=== PATIENT | male | born 1960 | race Caucasian/White ===

== ENCOUNTER → 2016-09-08 | Outpatient (CLI) | payer OTHER ==
[~2016-09-08] MED LIST: /ADVA50050; /ADVA50050 INH; /AUGM875TA; /FENO48TA PO; /FENT25PA TD; /MOXI40TA OR; /OXAZ10CA; /OXAZ10CA PO; /PANT40TA OR; /PANT40TA PO; /THIA10TA OR; /TIOT18INH INH; ADVAIR HFA INH; ADVAIR HFA PO; ADVAIR200 INHALATION; ADVAIR500; ADVAIR500 INHALATION; ALBU17IN INH; ALBU83IN IN; ALBU83IN NEB; ALBUTEROL; ALBUTEROL INHALATION; ALBUTEROL INHALER INH; ALBUTEROL SULFATE INH; ALCOHOL TOP; ASPI325T; ASPI325T OR; ASPI325T PO; ASPI81TA7 PO; ASPI81TA83 PO; ATARAX50 PO; ATIV1TAB2; ATOR1TAB18 PO; BACL10TA2 PO; BENADRYL; COLA100C2 PO; COUMADIN PO; DARV100T OR; DARVOCET-N PO; DARVON-N1 PO; DIGO0.257 PO; ECOTRIN PO; ELIMITE TOPICAL; FENO48TA2 PO; FLEXERIL10 PO; GABA800T PO; HYDR-4274 PO; HYDR50TA8; HYDR50TA8 OR; HYDR50TA8 PO; HYDROXYZINE PO; IBUP600T26 PO; LABE10TAB PO; LEVITRA PO; LEXAPRO20 PO; LISI10TA4 PO; LOPR50TA; LOPR50TA PO; LOPRESSOR OR; LOPRESSOR PO; LORA0.5T OR; LOSA100T36 PO; LOVENOX SQ; LYRI200C PO; METO12TA PO; METROPROLOL PO; MILKSUS OR; MILKSUS PO; MOTRIN800 PO; NEEDLESFIN SQ; NEUR100C OR; NEUR100C PO; NEUR300C OR; NEUR600T OR; NEURONTIN PO; NICO21DI4; NICO21DI4 TD; NICO2GUM62 PO; NICOTINE GUM PO; NICOTINE OR; NITR0.4S; NITR0.4S SL; NITR4TASL SL; NITROSTAT4; NITROSTAT4 SL; OXAZ15CA2 OR; PAIN325T OR; PANT40TA2 PO; PAXI20TA; PAXI20TA OR; PAXI20TA PO; PERC5TAB8 PO; PERCOCET PO; PRED20TA OR; PROTONIX40 PO; PROV90AE; SIMV20TA2; SIMV20TA2 OR; SING10TA31; SING10TA31 OR; SPIRIVA HANDIHALER INH; THERGRAN; TRAM50TA2 OR; TRAZ100T4 PO; TRIC145T19 OR; VITA100T OR; ZANTAC150 PO; ZOCO40TA OR; [UNRECOGNIZED DRUG - CODE] PO; [UNRECOGNIZED DRUG - CODE] PO; [UNRECOGNIZED DRUG - OTHER] PO; [UNRECOGNIZED DRUG - REMARK] PO; [UNRECOGNIZED DRUG - SUPPLY] SC; nicorette
--- NOTE | 2016-09-08 11:43 | REP ---
Reason: Chronic obstructive pulmonary disease (COPD). Comparison: Multiple latest 04/16/2016. Lung sandoval are somewhat hyperexpanded. Chronic basilar changes are seen on the left status quo. The cardiomediastinal silhouette is unchanged. The heart is not enlarged. No acute patchy parenchymal opacities or pleural effusions have developed. The osseous structures are within normal limits. IMPRESSION: Chronic changes as described above without evidence of acute cardiopulmonary disease. Signed by El Scherer DO 09/08/2016 11:51 A
== END ==
LOC: M RAD 10:38
PROVIDERS: ATTEND Internal Medicine Pulmonary Disease
DX: J44.9 Chronic obstructive pulmonary disease, unspecified (principal)

== ENCOUNTER → 2016-09-15 | Outpatient (CLI) | payer OTHER ==
[2016-09-15 13:29] LABS: ALBUMIN 3.8 GM/DL (3.2-5.2); BILIRUBIN,TOTAL 0.4 MG/DL (0.2-1.0); CALCIUM LEVEL 8.8 MG/DL (8.5-10.1); CREATININE FOR GFR 1.48 MG/DL (0.70-1.30); POTASSIUM SERUM 4.4 MEQ/L (3.5-5.1); TOTAL PROTEIN 7.6 GM/DL (6.4-8.2)
== END ==
LOC: M LAB 12:11
PROVIDERS: ATTEND Family Medicine
DX: I10 Essential (primary) hypertension (principal); Z13.1 Encounter for screening for diabetes mellitus; Z13.220 Encounter for screening for lipoid disorders

== ENCOUNTER → 2016-09-28 | Outpatient (CLI) | payer OTHER ==
[2016-09-28 11:57] LABS: CALCIUM LEVEL 8.6 MG/DL (8.5-10.1); CREATININE FOR GFR 1.38 MG/DL (0.70-1.30); GLOMERULAR FILTRATION RATE 56.3 (>56)
== END ==
LOC: M LAB 10:31
PROVIDERS: ATTEND Family Medicine
DX: R74.8 Abnormal levels of other serum enzymes (principal)

== ENCOUNTER → 2016-10-27 | Outpatient (CLI) | payer OTHER ==
[2016-10-27 11:16] LABS: FREE T4 0.81 NG/DL (0.76-1.46)
== END ==
LOC: M LAB 10:06
PROVIDERS: ATTEND Family Medicine
DX: Z13.29 Encounter for screening for other suspected endocrine disorder (principal)

== ENCOUNTER → 2017-01-11 | Outpatient (CLI) | payer OTHER ==
[~2017-01-11] MED LIST changes: +ASPI1TAB15 PO; -ASPI81TA7 PO; -ATOR1TAB18 PO; +ATOR80TA59 PO; -HYDR-4274 PO; +HYDR50TA70 PO; +IBUP-1022 PO; -IBUP600T26 PO; -METO12TA PO; +METO1TAB87 PO; +TRAZ-136 PO; -TRAZ100T4 PO
[2017-01-11 12:12] LABS: ANION GAP 5 MEQ/L (8-16); BLOOD UREA NITROGEN 10 MG/DL (7-18); CALCIUM LEVEL 8.9 MG/DL (8.5-10.1); CARBON DIOXIDE LEVEL 27 MEQ/L (21-32); CHLORIDE LEVEL 110 MEQ/L (98-107); CREATININE FOR GFR 1.27 MG/DL (0.70-1.30); GLOMERULAR FILTRATION RATE > 60.0 (>56); GLUCOSE, FASTING 89 MG/DL (70-105); POTASSIUM SERUM 4.7 MEQ/L (3.5-5.1); SODIUM LEVEL 142 MEQ/L (136-145)
== END ==
LOC: M LAB 10:35
PROVIDERS: ATTEND Internal Medicine Cardiovascular Disease
DX: E78.2 Mixed hyperlipidemia (principal); I10 Essential (primary) hypertension; I25.10 Atherosclerotic heart disease of native coronary artery without angina pectoris

== ENCOUNTER → 2017-03-24 | Outpatient (CLI) | payer OTHER ==
--- NOTE | 2017-03-24 11:25 | REP ---
PA and lateral chest: Comparisons 09/08/2016. The lung sandoval are clear. Cardiac size is normal. The tay, mediastinum, and bony thorax are unchanged. There is thoracic scoliosis convex right, unchanged. There are surgical clips in the mediastinum superiorly on the left, unchanged. Impression: Chronic stable findings are identified as described. Otherwise, negative PA and chest. Signed by Lico Chairez MD 03/24/2017 11:16 A
== END ==
LOC: M RAD 10:27
PROVIDERS: ATTEND Internal Medicine Pulmonary Disease
DX: J44.9 Chronic obstructive pulmonary disease, unspecified (principal)

== ENCOUNTER → 2017-03-24 | Outpatient (CLI) | payer OTHER | LOC: M LAB 10:24 | PROVIDERS: ATTEND Internal Medicine Cardiovascular Disease | DX: E78.5 Hyperlipidemia, unspecified (principal) ==

== ENCOUNTER → 2017-07-28 | Outpatient (CLI) | payer OTHER ==
[2017-07-28 11:06] LABS: HEPATITIS B SURFACE ANTIBODY NEGATIVE (POSITIVE)
[2017-07-28 11:45] LABS: HEPATITIS C VIRUS ABY INDEX 0.2 INDEX (<0.8)
== END ==
LOC: M LAB 10:06
DX: Z11.59 Encounter for screening for other viral diseases (principal)
CPT/HCPCS: 86706

== ENCOUNTER → 2017-08-03 | Outpatient (CLI) | payer OTHER | LOC: M PAIN 09:15 | DX: G89.29 Other chronic pain (principal); M46.96 Unspecified inflammatory spondylopathy, lumbar region; M54.17 Radiculopathy, lumbosacral region; G62.9 Polyneuropathy, unspecified; J44.9 Chronic obstructive pulmonary disease, unspecified; I48.0 Paroxysmal atrial fibrillation; I10 Essential (primary) hypertension; E78.5 Hyperlipidemia, unspecified; F41.9 Anxiety disorder, unspecified; F10.10 Alcohol abuse, uncomplicated; Z79.82 Long term (current) use of aspirin; Z79.899 Other long term (current) drug therapy; Z88.8 Allergy status to other drugs, medicaments and biological substances; Z91.013 Allergy to seafood; Z85.118 Personal history of other malignant neoplasm of bronchus and lung; Z87.891 Personal history of nicotine dependence; Z90.2 Acquired absence of lung [part of] | CPT/HCPCS: G0463 ==

== ENCOUNTER → 2017-09-06 | Outpatient (CLI) | payer OTHER | LOC: M RAD 10:05 | DX: G62.9 Polyneuropathy, unspecified (principal); M51.36 Other intervertebral disc degeneration, lumbar region | CPT/HCPCS: 72110 ==

== ENCOUNTER → 2017-09-20 | Outpatient (CLI) | payer OTHER | LOC: M PAIN 10:00 | DX: G62.9 Polyneuropathy, unspecified (principal); M46.96 Unspecified inflammatory spondylopathy, lumbar region; M54.17 Radiculopathy, lumbosacral region; I10 Essential (primary) hypertension; E78.5 Hyperlipidemia, unspecified; I25.2 Old myocardial infarction; F41.9 Anxiety disorder, unspecified; Z79.82 Long term (current) use of aspirin; Z79.899 Other long term (current) drug therapy; Z88.8 Allergy status to other drugs, medicaments and biological substances; Z85.118 Personal history of other malignant neoplasm of bronchus and lung; Z87.891 Personal history of nicotine dependence | CPT/HCPCS: G0463 ==

== ENCOUNTER → 2017-11-08 | Outpatient (CLI) | payer OTHER | LOC: M PAIN 10:30 | DX: G62.9 Polyneuropathy, unspecified (principal); M46.96 Unspecified inflammatory spondylopathy, lumbar region; M54.17 Radiculopathy, lumbosacral region; G89.29 Other chronic pain; J44.9 Chronic obstructive pulmonary disease, unspecified; I10 Essential (primary) hypertension; E78.5 Hyperlipidemia, unspecified; F41.9 Anxiety disorder, unspecified; F10.10 Alcohol abuse, uncomplicated; Z79.82 Long term (current) use of aspirin; Z79.899 Other long term (current) drug therapy; Z88.8 Allergy status to other drugs, medicaments and biological substances; Z85.118 Personal history of other malignant neoplasm of bronchus and lung; Z87.891 Personal history of nicotine dependence | CPT/HCPCS: G0463 ==

== ENCOUNTER → 2018-01-02 | Outpatient (CLI) | payer OTHER | LOC: M PAIN 08:45 | DX: G62.9 Polyneuropathy, unspecified (principal); M46.96 Unspecified inflammatory spondylopathy, lumbar region; M54.17 Radiculopathy, lumbosacral region; G89.29 Other chronic pain; J44.9 Chronic obstructive pulmonary disease, unspecified; I25.119 Atherosclerotic heart disease of native coronary artery with unspecified angina pectoris; I10 Essential (primary) hypertension; E78.5 Hyperlipidemia, unspecified; F41.9 Anxiety disorder, unspecified; F10.10 Alcohol abuse, uncomplicated; Z79.82 Long term (current) use of aspirin; Z79.899 Other long term (current) drug therapy; Z88.8 Allergy status to other drugs, medicaments and biological substances; Z87.891 Personal history of nicotine dependence; Z85.118 Personal history of other malignant neoplasm of bronchus and lung | CPT/HCPCS: G0463 ==

== ENCOUNTER → 2018-02-07 | Outpatient (CLI) | payer OTHER | LOC: M PAIN 09:45 | DX: G62.9 Polyneuropathy, unspecified (principal); M46.96 Unspecified inflammatory spondylopathy, lumbar region; M54.17 Radiculopathy, lumbosacral region; G89.29 Other chronic pain; J44.9 Chronic obstructive pulmonary disease, unspecified; I10 Essential (primary) hypertension; E78.5 Hyperlipidemia, unspecified; F41.9 Anxiety disorder, unspecified; F10.10 Alcohol abuse, uncomplicated; Z79.82 Long term (current) use of aspirin; Z79.899 Other long term (current) drug therapy; Z88.8 Allergy status to other drugs, medicaments and biological substances; Z86.79 Personal history of other diseases of the circulatory system; Z85.118 Personal history of other malignant neoplasm of bronchus and lung; Z87.891 Personal history of nicotine dependence | CPT/HCPCS: G0463 ==

== ENCOUNTER → 2018-03-16 | Outpatient (CLI) | payer OTHER ==
[2018-03-16 12:25] LABS: BASO # 0.1 10^3/uL (0.0-0.2); BASO % 1.9 % (0.0-1.0); EOS # 0.4 10^3/uL (0.0-0.50); EOS % 5.5 % (0.0-3.0); HEMOGLOBIN 13.2 g/dl (13.5-17.5); IMMATURE GRANULOCYTE % 0.2 % (0-3.0); LYMPH # 2.4 10^3/uL (1.5-4.5); LYMPH % 36.8 % (24.0-44.0); MEAN CORPUSCULAR HEMOGLOBIN 33.4 pg (27.0-33.0); MEAN CORPUSCULAR HGB CONC 33.8 g/dl (32.0-36.5); MEAN CORPUSCULAR VOLUME 98.7 fl (80.0-96.0); MONO # 0.5 10^3/uL (0.0-0.8); MONO % 7.1 % (0.0-5.0); NEUTROPHILS # 3.1 10^3/uL (1.8-7.7); NEUTROPHILS % 48.5 % (36.0-66.0); PLATELET COUNT, AUTOMATED 180 10^3/uL (150-450); RED BLOOD COUNT 3.95 10^6/uL (4.30-6.10); WHITE BLOOD COUNT 6.4 10^3/uL (4.0-10.0)
[2018-03-16 12:59] LABS: C REACTIVE PROTEIN QUANTITATIV < 0.30 MG/DL (0.00-0.30)
[2018-03-16 13:00] LABS: ERYTHROCYTE SEDIMENTATION RATE 7 mm/hr (0-20)
== END ==
LOC: M LAB 11:40
DX: H34.239 Retinal artery branch occlusion, unspecified eye (principal)
CPT/HCPCS: 86140

== ENCOUNTER → 2018-03-21 | Outpatient (CLI) | payer OTHER | LOC: M RAD 13:30 | DX: H34.239 Retinal artery branch occlusion, unspecified eye (principal); I65.23 Occlusion and stenosis of bilateral carotid arteries | CPT/HCPCS: 93880 ==

== ENCOUNTER → 2018-03-21 | Outpatient (CLI) | payer OTHER | LOC: M RAD 10:50 | DX: J44.9 Chronic obstructive pulmonary disease, unspecified (principal) | CPT/HCPCS: 71046 ==

== ENCOUNTER → 2018-03-21 | Outpatient (CLI) | payer OTHER | LOC: M PAIN 09:30 | DX: G62.9 Polyneuropathy, unspecified (principal); M46.96 Unspecified inflammatory spondylopathy, lumbar region; M54.17 Radiculopathy, lumbosacral region; J44.9 Chronic obstructive pulmonary disease, unspecified; I25.10 Atherosclerotic heart disease of native coronary artery without angina pectoris; I25.2 Old myocardial infarction; I10 Essential (primary) hypertension; E78.5 Hyperlipidemia, unspecified; R10.13 Epigastric pain; F41.9 Anxiety disorder, unspecified; F10.10 Alcohol abuse, uncomplicated; Z87.891 Personal history of nicotine dependence; Z85.118 Personal history of other malignant neoplasm of bronchus and lung; Z90.2 Acquired absence of lung [part of]; Z79.82 Long term (current) use of aspirin; Z79.899 Other long term (current) drug therapy; Z88.8 Allergy status to other drugs, medicaments and biological substances | CPT/HCPCS: G0463 ==

== ENCOUNTER 2018-04-25 22:16 | Inpatient (IN) | payer OTHER ==
[2018-04-25] MEDS: NS 1,000 ML IV (23:00)
[2018-04-25] MEDS: ACETAMINOPHEN 325 MG TAB PO (23:00)
[2018-04-25] MEDS: ALBUTEROL SULFATE 2.5 MG/0.5 ML INH NEB SOLN NEB ×3 (23:03→23:04)
[2018-04-25 23:06] LABS: BASO # 0.1 10^3/uL (0.0-0.2); BASO % 0.6 % (0.0-1.0); HEMATOCRIT 38.2 % (42.0-52.0); IMMATURE GRANULOCYTE % 0.5 % (0-3.0); LYMPH # 1.1 10^3/uL (1.5-4.5); LYMPH % 10.1 % (24.0-44.0); MEAN CORPUSCULAR HEMOGLOBIN 33.2 pg (27.0-33.0); MEAN CORPUSCULAR VOLUME 97.7 fl (80.0-96.0); MONO % 9.4 % (0.0-5.0); NEUTROPHILS # 8.8 10^3/uL (1.8-7.7); NEUTROPHILS % 79.4 % (36.0-66.0); PLATELET COUNT, AUTOMATED 155 10^3/uL (150-450); RED BLOOD COUNT 3.91 10^6/uL (4.30-6.10); RED CELL DISTRIBUTION WIDTH 12.8 % (11.5-14.5); WHITE BLOOD COUNT 11.1 10^3/uL (4.0-10.0)
[2018-04-25 23:21] LABS: ALBUMIN 3.5 GM/DL (3.2-5.2); ALBUMIN/GLOBULIN RATIO 0.92 (1.00-1.93); ALKALINE PHOSPHATASE 91 U/L (45-117); ALT/SGPT 17 U/L (12-78); ANION GAP 7 MEQ/L (8-16); AST/SGOT 13 U/L (7-37); BILIRUBIN,DIRECT 0.2 MG/DL (0.0-0.2); BILIRUBIN,TOTAL 0.5 MG/DL (0.2-1.0); BLOOD UREA NITROGEN 10 MG/DL (7-18); CALCIUM LEVEL 7.7 MG/DL (8.5-10.1); CARBON DIOXIDE LEVEL 26 MEQ/L (21-32); CHLORIDE LEVEL 102 MEQ/L (98-107); CPK CREATINE PHOSPHOKINASE 160 U/L (39-308); CREATININE FOR GFR 1.29 MG/DL (0.70-1.30); GLOMERULAR FILTRATION RATE > 60.0 (>56); GLUCOSE, FASTING 119 MG/DL (70-100); MB/CK RELATIVE INDEX 0.88 (< OR =4); POTASSIUM SERUM 3.8 MEQ/L (3.5-5.1); SODIUM LEVEL 135 MEQ/L (136-145); TOTAL PROTEIN 7.3 GM/DL (6.4-8.2); TROPONIN I < 0.02 NG/ML (< 0.10)
[2018-04-25] MEDS: MORPHINE 2 MG/ML 1ML SYRINGE (J2270) IV (23:25)
[2018-04-26] MEDS: MORPHINE 2 MG/ML 1ML SYRINGE (J2270) IV
[2018-04-26] MEDS: AZITHROMYCIN INJ 500 MG, VIAL MATE ADAPTER 1 EACH in D5W 250 ML IV ×2 (00:05→17:07)
[2018-04-26] MEDS: cefTRIAXone SOD 1 GM in D5W MINI-BAG PLUS 50 ML IV (00:15)
[2018-04-26] MEDS: NS 500 ML IV (00:30)
[2018-04-26] MEDS ORDERED: PILL CRUSHER/CUTTER 1 EACH XX (01:30)
[2018-04-26] MEDS: SODIUM CHLORIDE 0.9% 1000ML IV (01:45)
[2018-04-26] MEDS: NS 1,000 ML IV (02:45)
[2018-04-26] MEDS: IBUPROFEN 600 MG TAB PO ×2 (02:59→17:08)
[2018-04-26] MEDS: ACETAMINOPHEN TAB 650MG DOSE (2X325MG) PO ×3 (03:46→20:24)
[2018-04-26] MEDS: LISINOPRIL 20 MG TAB PO ×2 (08:37→20:14)
[2018-04-26] MEDS: LABETALOL 100 MG TAB PO ×2 (08:37→20:14)
[2018-04-26] MEDS: BACLOFEN 10 MG TAB PO ×2 (08:44→20:14)
[2018-04-26] MEDS: ASPIRIN 81 MG ENTERIC TAB PO (08:44)
[2018-04-26] MEDS: PANTOPRAZOLE 40MG TAB (PROTONIX) PO (08:45)
[2018-04-26] MEDS: GABAPENTIN 400 MG CAP PO ×3 (08:45→20:14)
[2018-04-26] MEDS: ATORVASTATIN 20 MG TAB PO (08:45)
[2018-04-26 09:06] LABS: BASO # 0.1 10^3/uL (0.0-0.2); BASO % 0.8 % (0.0-1.0); EOS % 0.3 % (0.0-3.0); HEMATOCRIT 36.5 % (42.0-52.0); HEMOGLOBIN 12.4 g/dl (13.5-17.5); IMMATURE GRANULOCYTE % 0.3 % (0-3.0); MEAN CORPUSCULAR HEMOGLOBIN 33.2 pg (27.0-33.0); MEAN CORPUSCULAR VOLUME 97.6 fl (80.0-96.0); MONO # 0.9 10^3/uL (0.0-0.8); NEUTROPHILS # 8.3 10^3/uL (1.8-7.7); NEUTROPHILS % 79.6 % (36.0-66.0); PLATELET COUNT, AUTOMATED 136 10^3/uL (150-450); RED BLOOD COUNT 3.74 10^6/uL (4.30-6.10); RED CELL DISTRIBUTION WIDTH 12.9 % (11.5-14.5); WHITE BLOOD COUNT 10.5 10^3/uL (4.0-10.0)
[2018-04-26 09:33] LABS: ANION GAP 6 MEQ/L (8-16); BLOOD UREA NITROGEN 9 MG/DL (7-18); CARBON DIOXIDE LEVEL 25 MEQ/L (21-32); CHLORIDE LEVEL 108 MEQ/L (98-107); CREATININE FOR GFR 1.17 MG/DL (0.70-1.30); GLOMERULAR FILTRATION RATE > 60.0 (>56); GLUCOSE, FASTING 128 MG/DL (70-100); NT-PRO BNP 1813 PG/ML (<125); POTASSIUM SERUM 3.6 MEQ/L (3.5-5.1); SODIUM LEVEL 139 MEQ/L (136-145)
[2018-04-26] MEDS: IPRATROPIUM 0.5MG/ALBUTEROL 2.5MG INH SOL UD 3ML (DUONEB)(J7620) NEB (09:59)
[2018-04-26] MEDS: cefTRIAXone SOD 2 GM in D5W MINI-BAG PLUS 50 ML IV (11:58)
[2018-04-26] MEDS: LATANOPROST 0.005% OPHTH SOLN 2.5 ML OU (20:13)
[2018-04-27] MEDS: IBUPROFEN 600 MG TAB PO (01:13)
[2018-04-27] MEDS: ACETAMINOPHEN TAB 650MG DOSE (2X325MG) PO ×2 (02:49→09:36)
[2018-04-27 06:29] LABS: BASO # 0.1 10^3/uL (0.0-0.2); BASO % 0.9 % (0.0-1.0); EOS % 0.5 % (0.0-3.0); HEMOGLOBIN 13.2 g/dl (13.5-17.5); IMMATURE GRANULOCYTE % 0.5 % (0-3.0); LYMPH # 1.5 10^3/uL (1.5-4.5); LYMPH % 19.3 % (24.0-44.0); MEAN CORPUSCULAR HEMOGLOBIN 32.9 pg (27.0-33.0); MEAN CORPUSCULAR VOLUME 99.8 fl (80.0-96.0); MONO # 0.8 10^3/uL (0.0-0.8); MONO % 11.1 % (0.0-5.0); NEUTROPHILS # 5.1 10^3/uL (1.8-7.7); NEUTROPHILS % 67.7 % (36.0-66.0); PLATELET COUNT, AUTOMATED 155 10^3/uL (150-450); RED BLOOD COUNT 4.01 10^6/uL (4.30-6.10); RED CELL DISTRIBUTION WIDTH 12.8 % (11.5-14.5); WHITE BLOOD COUNT 7.6 10^3/uL (4.0-10.0)
[2018-04-27 06:34] LABS: ANION GAP 8 MEQ/L (8-16); BLOOD UREA NITROGEN 10 MG/DL (7-18); CALCIUM LEVEL 8.3 MG/DL (8.5-10.1); CARBON DIOXIDE LEVEL 27 MEQ/L (21-32); CHLORIDE LEVEL 105 MEQ/L (98-107); CREATININE FOR GFR 1.25 MG/DL (0.70-1.30); GLOMERULAR FILTRATION RATE > 60.0 (>56); GLUCOSE, FASTING 97 MG/DL (70-100); POTASSIUM SERUM 3.8 MEQ/L (3.5-5.1); SODIUM LEVEL 140 MEQ/L (136-145)
[2018-04-27] MEDS: LISINOPRIL 20 MG TAB PO (09:00)
[2018-04-27] MEDS ORDERED: FLUBLOK(EGG FREE)(QUAD)INFLUENZA VACC 0.5ML SYRINGE (90682)18YRS&OLDER IM ×2 (09:00→10:30)
[2018-04-27] MEDS: PANTOPRAZOLE 40MG TAB (PROTONIX) PO (09:34)
[2018-04-27] MEDS: BACLOFEN 10 MG TAB PO ×2 (09:35→20:33)
[2018-04-27] MEDS: GABAPENTIN 400 MG CAP PO ×3 (09:35→20:30)
[2018-04-27] MEDS: ATORVASTATIN 20 MG TAB PO (09:35)
[2018-04-27] MEDS: ASPIRIN 81 MG ENTERIC TAB PO (09:35)
[2018-04-27] MEDS: LABETALOL 100 MG TAB PO ×2 (09:43→20:33)
[2018-04-27] MEDS ORDERED: ISOVUE-370 76% 100ML VIAL (Q9967) As Ordered (10:22)
[2018-04-27] MEDS: cefTRIAXone SOD 2 GM in D5W MINI-BAG PLUS 50 ML IV (11:36)
[2018-04-27] MEDS: KETOROLAC 30 MG/ML VIAL (J1885) IV (11:38)
[2018-04-27] MEDS: APIXABAN 5 MG TAB (ELIQUIS) PO ×2 (14:33→20:30)
[2018-04-27] MEDS: ACETAMINOPHEN 500 MG TAB PO ×2 (14:33→20:28)
[2018-04-27 15:01] LABS: KETONE, URINE AUTO RFX NEGATIVE (NEGATIVE); LEUKOCYTE ESTERASE UR AUTO RFX NEGATIVE (NEGATIVE); NITRITE, URINE AUTO RFX NEGATIVE (NEGATIVE); RBC, URINE AUTO RFX 0 /HPF (0-3); SQUAM EPITHELIAL CELL UR AURFX 0 /HPF (0-6); WBC, URINE AUTO RFX 1 /HPF (0-3)
[2018-04-27 15:04] LABS: FIBRINOGEN 623 MG/DL (221-452)
[2018-04-27 15:07] LABS: D-DIMER QUANT 3770.6 ng/ml (<500)
[2018-04-27 15:36] LABS: SPECIFIC GRAVITY UR AUTO RFX >1.060 (1.002-1.035)
[2018-04-27] MEDS ORDERED: cefTRIAXone SOD 1 GM in D5W MINI-BAG PLUS 50 ML IV (17:00)
[2018-04-27] MEDS: AZITHROMYCIN INJ 500 MG, VIAL MATE ADAPTER 1 EACH in D5W 250 ML IV (17:31)
[2018-04-27] MEDS: oxyCODONE 5MG TAB PO ×2 (17:48→22:19)
[2018-04-27] MEDS: LATANOPROST 0.005% OPHTH SOLN 2.5 ML OU (20:27)
[2018-04-28] MEDS: oxyCODONE 5MG TAB PO ×3 (02:48→12:31)
[2018-04-28 07:21] LABS: BASO # 0.1 10^3/uL (0.0-0.2); BASO % 0.9 % (0.0-1.0); EOS # 0.2 10^3/uL (0.0-0.50); EOS % 2.7 % (0.0-3.0); HEMATOCRIT 37.8 % (42.0-52.0); HEMOGLOBIN 12.9 g/dl (13.5-17.5); IMMATURE GRANULOCYTE % 0.3 % (0-3.0); LYMPH # 1.3 10^3/uL (1.5-4.5); LYMPH % 18.5 % (24.0-44.0); MEAN CORPUSCULAR HEMOGLOBIN 33.2 pg (27.0-33.0); MEAN CORPUSCULAR HGB CONC 34.1 g/dl (32.0-36.5); MEAN CORPUSCULAR VOLUME 97.4 fl (80.0-96.0); MONO # 0.7 10^3/uL (0.0-0.8); MONO % 10.3 % (0.0-5.0); NEUTROPHILS # 4.7 10^3/uL (1.8-7.7); NEUTROPHILS % 67.3 % (36.0-66.0); PLATELET COUNT, AUTOMATED 161 10^3/uL (150-450); RED BLOOD COUNT 3.88 10^6/uL (4.30-6.10); RED CELL DISTRIBUTION WIDTH 12.7 % (11.5-14.5)
[2018-04-28 07:42] LABS: ERYTHROCYTE SEDIMENTATION RATE 52 mm/hr (0-20)
[2018-04-28 07:49] LABS: ALBUMIN 3.1 GM/DL (3.2-5.2); ALKALINE PHOSPHATASE 84 U/L (45-117); ALT/SGPT 19 U/L (12-78); ANION GAP 8 MEQ/L (8-16); AST/SGOT 20 U/L (7-37); BILIRUBIN,TOTAL 0.3 MG/DL (0.2-1.0); BLOOD UREA NITROGEN 11 MG/DL (7-18); CALCIUM LEVEL 8.6 MG/DL (8.5-10.1); CARBON DIOXIDE LEVEL 27 MEQ/L (21-32); CHLORIDE LEVEL 106 MEQ/L (98-107); CREATININE FOR GFR 1.11 MG/DL (0.70-1.30); GLOMERULAR FILTRATION RATE > 60.0 (>56); GLUCOSE, FASTING 104 MG/DL (70-100); NT-PRO BNP 2879 PG/ML (<125); POTASSIUM SERUM 3.3 MEQ/L (3.5-5.1); SODIUM LEVEL 141 MEQ/L (136-145); TOTAL PROTEIN 7.5 GM/DL (6.4-8.2)
[2018-04-28] MEDS: ATORVASTATIN 20 MG TAB PO (09:48)
[2018-04-28] MEDS: GABAPENTIN 400 MG CAP PO ×3 (09:48→20:57)
[2018-04-28] MEDS: POTASSIUM CHLORIDE 10 MEQ SR TABLET PO (09:49)
[2018-04-28] MEDS: LABETALOL 100 MG TAB PO ×2 (09:49→20:57)
[2018-04-28] MEDS: PANTOPRAZOLE 40MG TAB (PROTONIX) PO (09:49)
[2018-04-28] MEDS: APIXABAN 5 MG TAB (ELIQUIS) PO ×2 (09:50→20:57)
[2018-04-28] MEDS: ASPIRIN 81 MG ENTERIC TAB PO (09:50)
[2018-04-28] MEDS: BACLOFEN 10 MG TAB PO ×2 (09:50→20:58)
[2018-04-28] MEDS: ACETAMINOPHEN 500 MG TAB PO ×2 (09:50→20:57)
[2018-04-28] MEDS: KETOROLAC 30 MG/ML VIAL (J1885) IV (09:51)
[2018-04-28 11:27] LABS: AMORPHOUS SEDIMENT RFX SMALL (NEGATIVE); KETONE, URINE AUTO RFX NEGATIVE (NEGATIVE); LEUKOCYTE ESTERASE UR AUTO RFX NEGATIVE (NEGATIVE); NITRITE, URINE AUTO RFX NEGATIVE (NEGATIVE); RBC, URINE AUTO RFX 2 /HPF (0-3); SQUAM EPITHELIAL CELL UR AURFX 0 /HPF (0-6); WBC, URINE AUTO RFX 1 /HPF (0-3)
[2018-04-28] MEDS: cefTRIAXone SOD 2 GM in D5W MINI-BAG PLUS 50 ML IV (12:31)
[2018-04-28] MEDS: MORPHINE 4 MG/ML 1ML VIAL/SYRINGE (J2270) IV (12:31)
[2018-04-28 16:17] LABS: BODY FLUID CULTURE Not Indicated (.); LEGIONELLA ANTIGEN URINE Negative (Negative); ORGANISM ID Not indicated. (.); SPECIMEN SOURCE Urine (.); URINE STREP PNEUMONIAE ANTIGEN Negative (Negative)
[2018-04-28] MEDS: AZITHROMYCIN INJ 500 MG, VIAL MATE ADAPTER 1 EACH in D5W 250 ML IV (16:18)
[2018-04-28] MEDS: LATANOPROST 0.005% OPHTH SOLN 2.5 ML OU (20:56)
[2018-04-29] MEDS: oxyCODONE 5MG TAB PO ×4 (00:37→22:05)
[2018-04-29] MEDS: DIGOXIN INJ 0.5 MG/2 ML AMP (J1160) IV (07:01)
[2018-04-29] MEDS: diltiaZEM 125 MG in NS 100 ML IV (07:02)
[2018-04-29 07:11] LABS: BASO # 0.1 10^3/uL (0.0-0.2); BASO % 1.2 % (0.0-1.0); EOS # 0.3 10^3/uL (0.0-0.50); EOS % 5.1 % (0.0-3.0); HEMOGLOBIN 13.4 g/dl (13.5-17.5); IMMATURE GRANULOCYTE % 0.3 % (0-3.0); LYMPH # 1.4 10^3/uL (1.5-4.5); LYMPH % 23.6 % (24.0-44.0); MEAN CORPUSCULAR HEMOGLOBIN 32.9 pg (27.0-33.0); MEAN CORPUSCULAR HGB CONC 34.4 g/dl (32.0-36.5); MEAN CORPUSCULAR VOLUME 95.8 fl (80.0-96.0); MONO # 0.7 10^3/uL (0.0-0.8); MONO % 11.3 % (0.0-5.0); NEUTROPHILS # 3.5 10^3/uL (1.8-7.7); NEUTROPHILS % 58.5 % (36.0-66.0); PLATELET COUNT, AUTOMATED 168 10^3/uL (150-450); RED BLOOD COUNT 4.07 10^6/uL (4.30-6.10); RED CELL DISTRIBUTION WIDTH 12.4 % (11.5-14.5); WHITE BLOOD COUNT 5.9 10^3/uL (4.0-10.0)
[2018-04-29 07:41] LABS: ANION GAP 8 MEQ/L (8-16); BLOOD UREA NITROGEN 11 MG/DL (7-18); CALCIUM LEVEL 8.6 MG/DL (8.5-10.1); CARBON DIOXIDE LEVEL 24 MEQ/L (21-32); CHLORIDE LEVEL 109 MEQ/L (98-107); CREATININE FOR GFR 0.98 MG/DL (0.70-1.30); GLOMERULAR FILTRATION RATE > 60.0 (>56); GLUCOSE, FASTING 109 MG/DL (70-100); POTASSIUM SERUM 3.7 MEQ/L (3.5-5.1); SODIUM LEVEL 141 MEQ/L (136-145)
[2018-04-29 07:53] LABS: CPK CREATINE PHOSPHOKINASE 120 U/L (39-308); MAGNESIUM LEVEL 2.3 MG/DL (1.8-2.4); MB/CK RELATIVE INDEX 1.25 (< OR =4); TROPONIN I < 0.02 NG/ML (< 0.10)
[2018-04-29] MEDS: APIXABAN 5 MG TAB (ELIQUIS) PO ×2 (08:05→20:24)
[2018-04-29] MEDS: ATORVASTATIN 20 MG TAB PO (08:05)
[2018-04-29] MEDS: ASPIRIN 81 MG ENTERIC TAB PO (08:05)
[2018-04-29] MEDS: BACLOFEN 10 MG TAB PO ×2 (08:05→20:24)
[2018-04-29] MEDS: PANTOPRAZOLE 40MG TAB (PROTONIX) PO (08:05)
[2018-04-29] MEDS: ACETAMINOPHEN 500 MG TAB PO ×2 (08:06→20:23)
[2018-04-29] MEDS: GABAPENTIN 400 MG CAP PO ×3 (08:09→20:25)
[2018-04-29] MEDS: cefTRIAXone SOD 2 GM in D5W MINI-BAG PLUS 50 ML IV (12:06)
[2018-04-29] MEDS ORDERED: DIGOXIN INJ 0.5 MG/2 ML AMP (J1160) IV (13:00)
[2018-04-29] MEDS: LISINOPRIL 20 MG TAB PO ×2 (13:46→22:04)
[2018-04-29] MEDS: LATANOPROST 0.005% OPHTH SOLN 2.5 ML OU (20:25)
[2018-04-30] MEDS: oxyCODONE 5MG TAB PO ×4 (04:08→17:44)
[2018-04-30 04:15] LABS: BASO # 0.1 10^3/uL (0.0-0.2); BASO % 1.2 % (0.0-1.0); EOS # 0.4 10^3/uL (0.0-0.50); EOS % 7.4 % (0.0-3.0); HEMATOCRIT 35.7 % (42.0-52.0); HEMOGLOBIN 12.1 g/dl (13.5-17.5); IMMATURE GRANULOCYTE % 0.3 % (0-3.0); LYMPH # 1.7 10^3/uL (1.5-4.5); LYMPH % 29.1 % (24.0-44.0); MEAN CORPUSCULAR HEMOGLOBIN 33.1 pg (27.0-33.0); MEAN CORPUSCULAR HGB CONC 33.9 g/dl (32.0-36.5); MEAN CORPUSCULAR VOLUME 97.5 fl (80.0-96.0); MONO # 0.6 10^3/uL (0.0-0.8); MONO % 9.9 % (0.0-5.0); NEUTROPHILS # 3.1 10^3/uL (1.8-7.7); NEUTROPHILS % 52.1 % (36.0-66.0); PLATELET COUNT, AUTOMATED 178 10^3/uL (150-450); RED BLOOD COUNT 3.66 10^6/uL (4.30-6.10); RED CELL DISTRIBUTION WIDTH 12.4 % (11.5-14.5); WHITE BLOOD COUNT 5.9 10^3/uL (4.0-10.0)
[2018-04-30 04:40] LABS: ANION GAP 6 MEQ/L (8-16); BLOOD UREA NITROGEN 15 MG/DL (7-18); CALCIUM LEVEL 8.4 MG/DL (8.5-10.1); CARBON DIOXIDE LEVEL 27 MEQ/L (21-32); CHLORIDE LEVEL 108 MEQ/L (98-107); CREATININE FOR GFR 1.06 MG/DL (0.70-1.30); GLOMERULAR FILTRATION RATE > 60.0 (>56); GLUCOSE, FASTING 102 MG/DL (70-100); POTASSIUM SERUM 3.6 MEQ/L (3.5-5.1); SODIUM LEVEL 141 MEQ/L (136-145)
[2018-04-30] MEDS: MOXIFLOXACIN 400 MG TAB PO (05:50)
[2018-04-30] MEDS: LISINOPRIL 20 MG TAB PO ×2 (08:06→21:18)
[2018-04-30] MEDS: APIXABAN 5 MG TAB (ELIQUIS) PO ×2 (08:06→21:18)
[2018-04-30] MEDS: GABAPENTIN 400 MG CAP PO ×3 (08:06→21:18)
[2018-04-30] MEDS: BACLOFEN 10 MG TAB PO ×2 (08:07→21:18)
[2018-04-30] MEDS: ASPIRIN 81 MG ENTERIC TAB PO (08:07)
[2018-04-30] MEDS: ATORVASTATIN 20 MG TAB PO (08:07)
[2018-04-30] MEDS: ACETAMINOPHEN 500 MG TAB PO ×2 (08:07→21:19)
[2018-04-30] MEDS: PANTOPRAZOLE 40MG TAB (PROTONIX) PO (08:08)
[2018-04-30] MEDS: LATANOPROST 0.005% OPHTH SOLN 2.5 ML OU (21:19)
[2018-05-01] MEDS: oxyCODONE 5MG TAB PO ×4 (04:38→18:12)
[2018-05-01] MEDS: MOXIFLOXACIN 400 MG TAB PO (05:20)
[2018-05-01 07:01] LABS: BASO # 0.1 10^3/uL (0.0-0.2); EOS # 0.4 10^3/uL (0.0-0.50); EOS % 5.4 % (0.0-3.0); HEMATOCRIT 36.9 % (42.0-52.0); HEMOGLOBIN 12.8 g/dl (13.5-17.5); IMMATURE GRANULOCYTE % 0.3 % (0-3.0); LYMPH # 1.8 10^3/uL (1.5-4.5); LYMPH % 23.6 % (24.0-44.0); MEAN CORPUSCULAR HEMOGLOBIN 33.4 pg (27.0-33.0); MEAN CORPUSCULAR HGB CONC 34.7 g/dl (32.0-36.5); MEAN CORPUSCULAR VOLUME 96.3 fl (80.0-96.0); MONO # 0.8 10^3/uL (0.0-0.8); MONO % 9.9 % (0.0-5.0); NEUTROPHILS # 4.7 10^3/uL (1.8-7.7); NEUTROPHILS % 59.8 % (36.0-66.0); PLATELET COUNT, AUTOMATED 224 10^3/uL (150-450); RED BLOOD COUNT 3.83 10^6/uL (4.30-6.10); RED CELL DISTRIBUTION WIDTH 12.3 % (11.5-14.5); WHITE BLOOD COUNT 7.8 10^3/uL (4.0-10.0)
[2018-05-01 07:15] LABS: ANION GAP 7 MEQ/L (8-16); BLOOD UREA NITROGEN 14 MG/DL (7-18); CALCIUM LEVEL 8.6 MG/DL (8.5-10.1); CARBON DIOXIDE LEVEL 26 MEQ/L (21-32); CHLORIDE LEVEL 107 MEQ/L (98-107); CREATININE FOR GFR 1.01 MG/DL (0.70-1.30); GLOMERULAR FILTRATION RATE > 60.0 (>56); GLUCOSE, FASTING 92 MG/DL (70-100); POTASSIUM SERUM 3.7 MEQ/L (3.5-5.1); SODIUM LEVEL 140 MEQ/L (136-145)
[2018-05-01] MEDS: ACETAMINOPHEN 500 MG TAB PO ×2 (08:39→21:20)
[2018-05-01] MEDS: GABAPENTIN 400 MG CAP PO ×3 (08:40→21:20)
[2018-05-01] MEDS: ASPIRIN 81 MG ENTERIC TAB PO (08:40)
[2018-05-01] MEDS: APIXABAN 5 MG TAB (ELIQUIS) PO ×2 (08:40→21:20)
[2018-05-01] MEDS: ATORVASTATIN 20 MG TAB PO (08:40)
[2018-05-01] MEDS: BACLOFEN 10 MG TAB PO ×2 (08:41→21:20)
[2018-05-01] MEDS: PANTOPRAZOLE 40MG TAB (PROTONIX) PO (08:41)
[2018-05-01 09:16] LABS: GOLD SPEC TUBE RECIEVED
[2018-05-01 10:35] LABS: DRVV SCREEN 46.9 SEC
[2018-05-01 11:01] LABS: PTT LUPUS TYPE ANTICOAG SCREEN 1.1 (0-1.2)
[2018-05-01] MEDS: MORPHINE 4 MG/ML 1ML VIAL/SYRINGE (J2270) IV (21:21)
[2018-05-01] MEDS: LATANOPROST 0.005% OPHTH SOLN 2.5 ML OU (21:21)
[2018-05-02] MEDS: oxyCODONE 5MG TAB PO ×5 (02:00→21:04)
[2018-05-02] MEDS: MOXIFLOXACIN 400 MG TAB PO (05:47)
[2018-05-02 06:55] LABS: BASO # 0.1 10^3/uL (0.0-0.2); BASO % 1.1 % (0.0-1.0); EOS # 0.4 10^3/uL (0.0-0.50); EOS % 5.6 % (0.0-3.0); HEMATOCRIT 37.3 % (42.0-52.0); HEMOGLOBIN 12.6 g/dl (13.5-17.5); IMMATURE GRANULOCYTE % 0.3 % (0-3.0); LYMPH # 1.9 10^3/uL (1.5-4.5); LYMPH % 25.5 % (24.0-44.0); MEAN CORPUSCULAR HEMOGLOBIN 33.1 pg (27.0-33.0); MEAN CORPUSCULAR HGB CONC 33.8 g/dl (32.0-36.5); MEAN CORPUSCULAR VOLUME 97.9 fl (80.0-96.0); MONO # 0.8 10^3/uL (0.0-0.8); MONO % 10.3 % (0.0-5.0); NEUTROPHILS # 4.3 10^3/uL (1.8-7.7); NEUTROPHILS % 57.2 % (36.0-66.0); PLATELET COUNT, AUTOMATED 263 10^3/uL (150-450); RED BLOOD COUNT 3.81 10^6/uL (4.30-6.10); RED CELL DISTRIBUTION WIDTH 12.3 % (11.5-14.5); WHITE BLOOD COUNT 7.5 10^3/uL (4.0-10.0)
[2018-05-02 07:16] LABS: ANION GAP 5 MEQ/L (8-16); BLOOD UREA NITROGEN 16 MG/DL (7-18); CALCIUM LEVEL 8.8 MG/DL (8.5-10.1); CARBON DIOXIDE LEVEL 28 MEQ/L (21-32); CHLORIDE LEVEL 105 MEQ/L (98-107); CREATININE FOR GFR 1.08 MG/DL (0.70-1.30); GLOMERULAR FILTRATION RATE > 60.0 (>56); GLUCOSE, FASTING 100 MG/DL (70-100); POTASSIUM SERUM 3.7 MEQ/L (3.5-5.1); SODIUM LEVEL 138 MEQ/L (136-145)
[2018-05-02] MEDS: ATORVASTATIN 20 MG TAB PO (09:00)
[2018-05-02] MEDS: ACETAMINOPHEN 500 MG TAB PO ×2 (09:01→21:02)
[2018-05-02] MEDS: BACLOFEN 10 MG TAB PO ×2 (09:02→21:02)
[2018-05-02] MEDS: APIXABAN 5 MG TAB (ELIQUIS) PO ×2 (09:02→21:05)
[2018-05-02] MEDS: PANTOPRAZOLE 40MG TAB (PROTONIX) PO (09:02)
[2018-05-02] MEDS: ASPIRIN 81 MG ENTERIC TAB PO (09:02)
[2018-05-02] MEDS: GABAPENTIN 400 MG CAP PO ×3 (09:02→21:02)
[2018-05-02] MEDS: LATANOPROST 0.005% OPHTH SOLN 2.5 ML OU (21:00)
[2018-05-02] MEDS: IPRATROPIUM 0.5MG/ALBUTEROL 2.5MG INH SOL UD 3ML (DUONEB)(J7620) NEB (21:29)
[2018-05-03 07:09] LABS: BASO # 0.1 10^3/uL (0.0-0.2); BASO % 1.2 % (0.0-1.0); EOS # 0.5 10^3/uL (0.0-0.50); EOS % 6.5 % (0.0-3.0); HEMOGLOBIN 12.8 g/dl (13.5-17.5); IMMATURE GRANULOCYTE % 0.4 % (0-3.0); LYMPH # 2.1 10^3/uL (1.5-4.5); MEAN CORPUSCULAR HEMOGLOBIN 33.1 pg (27.0-33.0); MEAN CORPUSCULAR HGB CONC 33.7 g/dl (32.0-36.5); MEAN CORPUSCULAR VOLUME 98.2 fl (80.0-96.0); MONO # 0.7 10^3/uL (0.0-0.8); MONO % 8.2 % (0.0-5.0); NEUTROPHILS # 4.6 10^3/uL (1.8-7.7); NEUTROPHILS % 57.7 % (36.0-66.0); PLATELET COUNT, AUTOMATED 306 10^3/uL (150-450); RED BLOOD COUNT 3.87 10^6/uL (4.30-6.10); RED CELL DISTRIBUTION WIDTH 12.4 % (11.5-14.5)
[2018-05-03 07:36] LABS: ANION GAP 8 MEQ/L (8-16); BLOOD UREA NITROGEN 20 MG/DL (7-18); CALCIUM LEVEL 8.7 MG/DL (8.5-10.1); CARBON DIOXIDE LEVEL 28 MEQ/L (21-32); CHLORIDE LEVEL 102 MEQ/L (98-107); GLOMERULAR FILTRATION RATE > 60.0 (>56); GLUCOSE, FASTING 102 MG/DL (70-100); POTASSIUM SERUM 3.8 MEQ/L (3.5-5.1); SODIUM LEVEL 138 MEQ/L (136-145)
[2018-05-03] MEDS: oxyCODONE 5MG TAB PO (07:50)
[2018-05-03] MEDS: BACLOFEN 10 MG TAB PO (09:43)
[2018-05-03] MEDS: GABAPENTIN 400 MG CAP PO (09:43)
[2018-05-03] MEDS: ATORVASTATIN 20 MG TAB PO (09:43)
[2018-05-03] MEDS: APIXABAN 5 MG TAB (ELIQUIS) PO (09:43)
[2018-05-03] MEDS: PANTOPRAZOLE 40MG TAB (PROTONIX) PO (09:43)
[2018-05-03] MEDS: ASPIRIN 81 MG ENTERIC TAB PO (09:43)
[2018-05-03] MEDS: ACETAMINOPHEN 500 MG TAB PO (09:44)
[2018-05-04 00:07] LABS: ANTI DOUBLE STRAND-DNA AB 12 IU/mL (0-9); ANTI THROMBIN 3 ANTIGEN IMMUNO 86 % (72-124); ANTI THROMBIN 3 FUNCT ACTIVITY 89 % (75-135); ANTINUCLEAR ANTIBODIES DIRECT Positive (Negative); CARDIOLIPIN IGA ANTIBODY <9 APL U/mL (0-11); CARDIOLIPIN IGG ANTIBODY <9 GPL U/mL (0-14); CARDIOLIPIN IGM ANTIBODY <9 MPL U/mL (0-12); RNP ANTIBODIES <0.2 AI (0.0-0.9); SJOGREN'S ANTI SS-A <0.2 AI (0.0-0.9); SJOGREN'S ANTI SS-B <0.2 AI (0.0-0.9); SMITH ANTIBODIES <0.2 AI (0.0-0.9)
[2019-04-26] MEDS ORDERED: cefTRIAXone SOD 1 GM in D5W MINI-BAG PLUS 50 ML IV (18:00)
== END 2018-05-03 12:07 | disposition home or self-care (01) | DRG 137 ==
LOC: M ICU 04-29 06:40 → M MS5PR 04-30 14:01 → M MSPAV 05-02 10:20 → M ED INP 04-26 02:08 → M MSPAV 04-26 02:48 → M ED 22:16
DX: J15.6 Pneumonia due to other Gram-negative bacteria (principal); I27.20 Pulmonary hypertension, unspecified; N28.0 Ischemia and infarction of kidney; I48.0 Paroxysmal atrial fibrillation; J44.0 Chronic obstructive pulmonary disease with (acute) lower respiratory infection; I10 Essential (primary) hypertension; E78.5 Hyperlipidemia, unspecified; F41.9 Anxiety disorder, unspecified; F10.21 Alcohol dependence, in remission; J30.81 Allergic rhinitis due to animal (cat) (dog) hair and dander; F17.210 Nicotine dependence, cigarettes, uncomplicated; I69.398 Other sequelae of cerebral infarction; H54.62 Unqualified visual loss, left eye, normal vision right eye; M54.5 Low back pain; K21.9 Gastro-esophageal reflux disease without esophagitis; M96.1 Postlaminectomy syndrome, not elsewhere classified; R26.81 Unsteadiness on feet; Z85.118 Personal history of other malignant neoplasm of bronchus and lung; Z86.711 Personal history of pulmonary embolism; Z79.82 Long term (current) use of aspirin; Z90.2 Acquired absence of lung [part of]; Z88.8 Allergy status to other drugs, medicaments and biological substances; Z79.899 Other long term (current) drug therapy

== ENCOUNTER → 2018-06-12 | Outpatient (CLI) | payer OTHER | LOC: M PAIN 08:30 | DX: G62.9 Polyneuropathy, unspecified (principal); M46.96 Unspecified inflammatory spondylopathy, lumbar region; M54.17 Radiculopathy, lumbosacral region; G89.29 Other chronic pain; J44.9 Chronic obstructive pulmonary disease, unspecified; I10 Essential (primary) hypertension; F41.9 Anxiety disorder, unspecified; F10.10 Alcohol abuse, uncomplicated; Z79.01 Long term (current) use of anticoagulants; Z79.82 Long term (current) use of aspirin; Z79.899 Other long term (current) drug therapy; Z88.8 Allergy status to other drugs, medicaments and biological substances; Z85.118 Personal history of other malignant neoplasm of bronchus and lung; Z86.79 Personal history of other diseases of the circulatory system; Z87.891 Personal history of nicotine dependence | CPT/HCPCS: G0463 ==

== ENCOUNTER → 2018-06-29 | Outpatient (REF) | payer OTHER ==
[~2018-06-29] MED LIST changes: +AMLO5TAB6 PO; +BRIM0.2S13 OU; +CARD40TA PO; +ELIQ5TAB PO; -GABA800T PO; +GABA800T4 PO; +KETO0.02 OU; +LATA5OPD OU; +LISI40TA PO; -LOSA100T36 PO; +LOSA100T50 PO; +NICO4LOZ MT; +OXYC1SOL3 PO; -PANT40TA2 PO; +PANT40TA3 PO; -TRAZ-136 PO; +TRAZ-163 PO; +VENTAER INH
== END ==
LOC: M SFHCPLAZ 14:54
DX: I48.91 Unspecified atrial fibrillation (principal); J18.9 Pneumonia, unspecified organism

== ENCOUNTER → 2018-07-19 | Outpatient (CLI) | payer OTHER ==
[~2018-07-19] MED LIST changes: +PROHANCE 279.3MG/ML 15ML VIAL (A9576) As Ordered ONE; +PROHANCE 279.3MG/ML 5ML VIAL (A9576) As Ordered ONE
--- NOTE | 2018-07-19 09:46 | REP ---
MRA CAROTIDS WITHOUT AND WITH CONTRAST: HISTORY: Abnormal carotid ultrasound. Unenhanced 3D [id number] and contrast enhanced MR angiography were performed at the level of the carotid bifurcations. There is mild stenosis of 5% of the right internal carotid artery at its origin. There is mild stenosis of 20% of the right internal carotid artery 2.2 cm from its origin. There is mild stenosis of 40% of the right external carotid artery at its origin. There is mild stenosis of 10% of the left internal carotid artery at its origin. There is mild stenosis of 40% of the left internal carotid artery 2.4 cm from its origin. There is mild stenosis of 25% of the left external carotid artery at its origin. The right vertebral artery is dominant. The right vertebral artery is patent. There are areas of mild to moderate atherosclerotic disease involving the left vertebral artery throughout its course. The origin of the left vertebral artery is not seen. This is secondary to at least moderate stenosis. IMPRESSION: 1. Mild stenosis of 5% of the right internal carotid artery at its origin. There is mild stenosis of 20% to the right internal carotid artery 2.2 cm from its origin. 2. Mild stenosis of 10% of the left internal carotid artery at its origin. There is mild stenosis of 40% of the left internal carotid artery 2.4 cm from its origin. 3. There are areas of mild to moderate atherosclerotic disease involving the left vertebral artery throughout its course. The origin of the left vertebral artery is not seen. This is secondary to at least moderate stenosis. The right vertebral artery is dominant. Electronically Signed by Grupo Cao MD 07/19/2018 09:57 A
== END ==
LOC: M RAD 08:12
PROVIDERS: ATTEND Internal Medicine
DX: R93.89 Abnormal findings on diagnostic imaging of other specified body structures (principal)
CPT/HCPCS: 70549; A9576

== ENCOUNTER → 2018-07-27 | Outpatient (CLI) | payer OTHER ==
[~2018-07-27] MED LIST changes: -PROHANCE 279.3MG/ML 15ML VIAL (A9576) As Ordered ONE; -PROHANCE 279.3MG/ML 5ML VIAL (A9576) As Ordered ONE
[2018-07-27 10:14] LABS: APPEARANCE, URINE CLEAR (CLEAR); BACTERIA, URINE AUTO NEGATIVE (NEGATIVE); BILIRUBIN, URINE AUTO NEGATIVE (NEGATIVE); BLOOD, URINE BLOOD NEGATIVE (NEGATIVE); COLOR, URINE STRAW (YELLOW); GLUCOSE, URINE (UA) AUTO NEGATIVE (NEGATIVE); KETONE, URINE AUTO NEGATIVE (NEGATIVE); LEUKOCYTE ESTERASE, URINE AUTO NEGATIVE (NEGATIVE); NITRITE, URINE AUTO NEGATIVE (NEGATIVE); PROTEIN, URINE AUTO NEGATIVE (NEGATIVE); RBC, URINE AUTO 3 /HPF (0-3); SPECIFIC GRAVITY URINE AUTO 1.008 (1.002-1.035); SQUAMOUS EPITHELIAL CELL UR AU 0 /HPF (0-6); UROBILINOGEN, URINE AUTO 0.2 mg/dL (0.0-2.0); WBC, URINE AUTO 0 /HPF (0-3)
[2018-07-27 10:16] LABS: BASO # 0.1 10^3/uL (0.0-0.2); BASO % 1.7 % (0.0-1.0); EOS # 0.3 10^3/uL (0.0-0.50); EOS % 3.9 % (0.0-3.0); HEMATOCRIT 45.7 % (42.0-52.0); HEMOGLOBIN 15.5 g/dl (13.5-17.5); LYMPH # 2.7 10^3/uL (1.5-4.5); LYMPH % 38.4 % (24.0-44.0); MEAN CORPUSCULAR HEMOGLOBIN 33.3 pg (27.0-33.0); MEAN CORPUSCULAR HGB CONC 33.9 g/dl (32.0-36.5); MEAN CORPUSCULAR VOLUME 98.1 fl (80.0-96.0); MONO # 0.4 10^3/uL (0.0-0.8); MONO % 5.9 % (0.0-5.0); NEUTROPHILS # 3.5 10^3/uL (1.8-7.7); PLATELET COUNT, AUTOMATED 211 10^3/uL (150-450); RED BLOOD COUNT 4.66 10^6/uL (4.30-6.10); WHITE BLOOD COUNT 7.1 10^3/uL (4.0-10.0)
[2018-07-27 10:36] LABS: BLOOD UREA NITROGEN 14 MG/DL (7-18); C REACTIVE PROTEIN QUANTITATIV < 0.30 MG/DL (0.00-0.30); CALCIUM LEVEL 9.2 MG/DL (8.8-10.2); CARBON DIOXIDE LEVEL 26 MEQ/L (21-32); CHLORIDE LEVEL 106 MEQ/L (98-107); CREATININE FOR GFR 1.17 MG/DL (0.70-1.30); GLOMERULAR FILTRATION RATE > 60.0 (>49); GLUCOSE, FASTING 96 MG/DL (70-100); POTASSIUM SERUM 4.2 MEQ/L (3.5-5.1); SODIUM LEVEL 139 MEQ/L (136-145)
[2018-07-27 10:52] LABS: ERYTHROCYTE SEDIMENTATION RATE 10 mm/hr (0-20)
[2018-07-29 00:06] LABS: ANA (HEP2) Negative (.); ANTI DOUBLE STRAND-DNA AB 17 IU/mL (0-9)
== END ==
LOC: M LAB 09:34
PROVIDERS: ATTEND Internal Medicine
DX: R76.8 Other specified abnormal immunological findings in serum (principal)

== ENCOUNTER → 2018-09-10 | Outpatient (CLI) | payer OTHER ==
--- NOTE | 2018-09-12 01:39 | ECWPNPC ---
PATIENT NAME: GRETCHEN HILL : 1960 GENDER: MALE VISIT DATE: 09/10/2018 DISCHARGE DATE: 09/10/1837 VISIT LOCKED DATE TIME: PHYSICIAN: THUY BANGURA RESOURCE: THUY BANGURA REASON FOR APPOINTMENT 1. BACK HISTORY OF PRESENT ILLNESS HISTORY OF PRESENT ILLNESS: HERE FOR F/U OF CHRONIC LOW BACK PAIN AND LEFT LEG PAIN.RATING PAIN VAS 6/10.DESCRIBES PAIN CONSTANT BURNING AND ACHING.PAIN AWAKENS FROM SLEEP.HAS TRIALED MULTIPLE MEDICATIONS WITHOUT IMPROVEMENT IN PAIN OR WITH ADVERSE EFFECTS TO INCLUDE CYMBALTA,ROPINEROLE AND FLEXERIL.TIZANIDINE 2MG AT HS IS SOMEWHAT HELPFUL BUT CONTINUES WITH POOR SLEEP.PAIN IS LOCATED LEFT LEG AND LEFT LOW BACK.HISTORY OF LUMBAR SURGERY IN 2011.REVIEWED MRI L/S SPINE WITH PATIENT AND DISCUSSED TREATMENT OPTIONS.DISCUSSED INTERVENTIONAL OPTIONS BUT PATIENT IS FEARFUL AND HAS HAD SOME BAD EXPERIENCES WITH THEM IN PAST.DISCUSSED POSSIBLILTY OF IV SEDATION. PAIN THE PATIENT DESCRIBES THE PAIN... THE PATIENT DESCRIBES THE PAIN... THE PATIENT DESCRIBES THE PAIN... THE PATIENT DESCRIBES THE PAIN... THE PATIENT DESCRIBES THE PAIN... FALL RISK SCREENING: SCREENING : NO FALLS IN THE PAST YEAR. CURRENT MEDICATIONS TAKING NICORETTE 4 MG LOZENGE 1 LOZENGE NEEDED MOUTH/THROAT TWICE A DAY TAKING ELIQUIS 5 MG TABLET 1 TAB ORALLY BID TAKING ALBUTEROL SULFATE HFA 108 (90 BASE) MCG/ACT AEROSOL SOLUTION 2 PUFFS INHALATION EVERY 4 HOURS NEEDED (DR. SCHMITZ) TAKING NITROSTAT 0.4 MG TABLET SUBLINGUAL 1 TABLET UNDER THE TONGUE SUBLINGUAL NEEDED FOR CHEST PAIN TAKING ASPIRIN 81 MG TABLET CHEWABLE 1 TABLET ORALLY ONCE A DAY TAKING LATANOPROST 0.005 % SOLUTION 1 DROP INTO AFFECTED EYE IN THE EVENING OPHTHALMIC ONCE A DAY BOTH EYES TAKING LISINOPRIL 10 MG TABLET 1/2 TABLET ORALLY TWICE DAILY TAKING ATORVASTATIN CALCIUM 80 MG TABLET 1 TABLET ORALLY ONCE A DAY TAKING BRIMONIDINE TARTRATE 0.15 % SOLUTION 1 DROP INTO BOTH EYES OPHTHALMIC ONCE A DAY TAKING NEURONTIN 800 MG TABLET TAKE ONE TABLET BY MOUTH THREE TIMES A DAY TAKING BACLOFEN 10 MG TABLET 1 TABLET WITH FOOD OR MILK ORALLY TWO TIMES A DAY (PAIN CLINIC) TAKING PANTOPRAZOLE SODIUM 40 MG TABLET DELAYED RELEASE 1 TABLET ORALLY ONCE A DAY NOT-TAKING LIDOCAINE HCL 2 % GEL 1 APPLICATION TO AFFECTED AREA NEEDED EXTERNALLY THREE TIMES A DAY NEEDED TO L LEG NOT-TAKING IBUPROFEN 600 MG TABLET 1 TABLET ORALLY THREE TIMES A DAY NEEDED NOT-TAKING GABAPENTIN 800 MG TABLET 1 TABLET ORALLY THREE TIMES DAILY, NOTES: DUPLICATE NOT-TAKING TIZANIDINE HCL 2 MG TABLET 2 ORALLY AT BEDTIME, NOTES: NOT TAKING MEDICATION LIST REVIEWED AND RECONCILED WITH THE PATIENT PAST MEDICAL HISTORY LUNG CANCER - 1A NON SMALL CELL CANCER W/ MOD DIFF SQUAMOUS CELL CARCINOMA S/P RESECTION 03/19 (DR. QUINTEROS) COPD- (NELI) CAD/HI - NEG CATH 02/2011, NORMAL ECHO 2013, STRESS TEST - INFERIOR ISCHEMIA V. DIAPHRAGM ATTENUATION 2013 HTN HYPERLIPIDEMIA ANXIETY DISORDER ALCOHOL ABUSE WITH MULTIPLE RELAPSES TOBACCO ABUSE DYSPEPSIA 10 YEAR ASCVD RISK - 29.9% (09/16/16) COLONIC POLYPS - LAST 09/05/2014 - REINDL (FU 5 YEAR) STROKE 03/2018 LEFT SIDED RESIDUAL ALLERGIES KLONOPIN: ANXIETY(PARANOIA): SIDE EFFECTS SURGICAL HISTORY NO PERSONAL OR FHX OF SEVERE REACTION TO ANESTHESIA HERNIA REPAIR 10 YO LUNG BIOPSY 2009 PARTIAL L PNEUMONECTOMY - FOR NON-SMALL CELL CA 03/2010 COLONOSCOPY (REINDL) 2011 LEFT L4-5 LAMINECTOMY WITH FAT GRAFT PLACMENT ([place]) 11/2012 PCI WITH NON-OBSTRUCTIVE CAD 2010 ORAL SURGREY 2016 FAMILY HISTORY FATHER: 72 YRS, OF ESRD; WAS ALSO KNOWN TO HAVE DM, DIAGNOSED WITH DIABETES MOTHER: 71 YRS, OF METASTATIC BREAST CA; WAS ALSO KNOWN TO HAVE CAD S/P 4VCABG, DIAGNOSED WITH HEART DISEASE, CANCER SIBLINGS: ALIVE, SISTERS (6) - 1 WITH SEIZURES, H/O BREAST CA, 1 WITH BENIGN BRAIN TUMOR 07/31/2015), SCOLIOSIS BROTHERS (2) - NO KNOWN MEDICAL PROBLEMS, DIAGNOSED WITH CANCER IN 2 SON(S): ALIVE 30 YRS, ASTHMA DAUGHTER(S): ALIVE 36 YRS, NO KNOWN MEDICAL PROBLEMS PATERNAL GRAND FATHER: PATERNAL GRAND MOTHER: MATERNAL GRAND FATHER: MATERNAL GRAND MOTHER: ONE SISTER FROM CANCER-JULY 2015. SOCIAL HISTORY GENERAL: TOBACCO USE ARE YOU A:FORMER SMOKER HOW LONG HAS IT BEEN SINCE YOU LAST SMOKED?6-12 MONTHS ALCOHOL SCREENING POINTS: 0, INTERPRETATION: NEGATIVE. RECREATIONAL DRUG USE DRUG USE?YES HOW OFTEN AND HOW MUCH? MARIJUANA ON OCCASION CAFFEINE 1-2/DAY. SEXUAL HX HAD SEX IN THE LAST 12 MONTHS (VAGINAL, ORAL, OR ANAL)?: NO, HAVE YOU EVER HAD AN STD?: NO. HIV / HEP-C SCREENING HIV TEST OFFERED TO PATIENT:YES DATE OFFERED:12/22/2017 TEST ACCEPTED:NO HEP-C TEST OFFERED TO PATIENT:YES DATE OFFERED:12/22/2017 REASON:PATIENT DECLINED TEST ACCEPTED:NO REASON:PATIENT DECLINED BROCHURE PROVIDED TO PATIENTYES QUAKER [id number] NONE LANGUAGE TURKISH. EDUCATION LEVEL OF EDUCATION:HIGH SCHOOL LEARNING BARRIERS / SPECIAL NEEDS CHANGE FROM LAST VISIT?NO BARRIERS TO LEARNING?NO HEARING IMPAIRED?YES BOTH EARS VISION IMPAIRED?YES COGNITIVELY IMPAIRED?NO :CORRECTIVE LENSES READINESS TO LEARN?YES LEARNING PREFERENCES?YES :DEMONSTRATION/VERBAL INSTRUCTION LEARNING CAPABILITIES PRESENT?YES EMOTIONAL BARRIERS?NO SPECIAL DEVICES?YES :CANE LEVEL VIAL GRINDER NEEDED?NO DOMESTIC VIOLENCE DO YOU FEEL SAFE IN YOUR ENVIRONMENT?YES OCCUPATION: UNEMPLOYED. DIET: NO ADDED SALT. EXERCISE: ACTIVE DAILY, NO REGULAR EXERCISE. MARITAL STATUS: . OTHERS AT HOME: NONE. PAIN CLINIC PFS, CLERGY, PUBLIC HEALTH REFERRALS PFS REFERRAL NEEDED?NO CLERGY REFERRAL NEEDED?NO PUBLIC HEALTH REFERRAL NEEDED?NO HAS THE PATIENT BEEN EDUCATED REGARDING HIS/HER PLAN OF CARE?YES HAS THE PATIENT BEEN EDUCATED REGARDING PAIN, THE RISK FOR PAIN, THE IMPORTANCE OF EFFECTIVE PAIN MANAGEMENT, AND THE PAIN ASSESSMENT PROCESS?YES HOUSING: RENTS APARTMENT. ADVANCE DIRECTIVE ADVANCE DIRECTIVE DISCUSSED WITH PATIENT:YES PT DECLINES INFO AT THIS TIME REVEIWED WITH PT 03/21/18 BVREVIEWED WITH PT 09/10/18 0900 BV. HOSPITALIZATION/MAJOR DIAGNOSTIC PROCEDURE PNEUMONIA - [facility] 05/19/10 HTN EMERGENCY 04/16/2016 PULMONARY EMBOLISM 05/19/10 A FIB 04/26- REVIEW OF SYSTEMS REVIEWED BY: PROVIDER: THUY SERRATO . CONSTITUTIONAL: ANY CHANGE IN YOUR MEDICAL CONDITION? PT DIAGNOSED WITH AFIB. STATES HE IS SCHEDULED TO WEAR HOLTER MONITOR NEXT WEEK. ALSO STATES HE IS STARTING A NEW MEDICATION FOR AFIB, BUT DOES NOT RECALL NAME OF MEDICATION. . CHILLS NO . FEVER NO . INFECTION: DO YOU HAVE NEW INFECTIONS? NO . DO YOU HAVE HISTORY OF MRSA? NO . MUSCULOSKELETAL: ANY NEW PATTERNS OF PAIN OR NUMBNESS? NO . GASTROENTEROLOGY: ANY NEW CHANGE IN BOWEL CONTROL? NO . GENITOURINARY: ANY NEW CHANGE IN BLADDER CONTROL? NO . IS THERE A CHANCE YOU COULD BE ? NO . HEMATOLOGY/LYMPH: DO YOU TAKE ANY BLOOD THINNERS? (FOR EXAMPLE- COUMADIN, PLAVIX, AGGRENOX, PLATEL, PRADAXA, OR XARELTO) YES, ELIQUIS . WHEN WAS YOUR LAST DOSE? DATE: TIME: . NEUROLOGY: HAVE YOU FALLEN IN THE PAST 12 MONTHS? NO . ANY NEW EXTREMITY NUMBNESS OR WEAKNESS? NO . CARDIOLOGY: DO YOU HAVE A PACEMAKER OR DEFIBRILLATOR? NO . RESPIRATORY: HAVE YOU BEEN SICK IN THE PAST WEEK? NO . FEVER NO . FLU LIKE SYMPTOMS? NO . COUGH NO . INTEGUMENTARY: DO YOU HAVE ANY RASHES OR OPEN SORES? NO . ALLERGIC/IMMUNO: ARE YOU ALLERGIC TO IV DYE? NO . ANY NEW ALLERGIES? NO . PSYCHIATRIC: DO YOU HAVE THOUGHTS OF HURTING YOURSELF OR SOMEONE ELSE? NO . ARE YOU ABUSED, NEGLECTED, OR IN AN UNSAFE ENVIRONMENT? NO . ENDOCRINOLOGY: ARE YOU DIABETIC? NO . OTHER: DO YOU NEED ANY PRESCRIPTIONS? NO . IF YES, PLEASE LIST: ____ . ANY NEW PROBLEMS WITH YOUR MEDICATIONS? NO . WHEN DID YOU LAST EAT? ____ . WHEN DID YOU LAST DRINK? ____ . WHAT DID YOU LAST DRINK? ____ . NAME OF PERSON DRIVING YOU HOME? ____ . DO YOU HAVE ANY OTHER QUESTIONS OR CONCERNS PT COMPLAINS OF LIDOCAINE GEL NOT WORKING WELL LIDOCAINE PATCHES DID. . VITAL SIGNS WT 145.4 LBS, HT 70 IN, BMI 20.86 INDEX, BP 126/78 MM HG, HR 73 /MIN, RR 18 /MIN, TEMP 97.9 F, OXYGEN SAT % 100%, NA INITIALS SC 08:53, REVIEWED BY: . EXAMINATION GENERAL EXAMINATION: GENERAL APPEARANCE:ALERT.NO ACUTE DISTRESS . PSYCHAFFECT NORMAL . LUNGS:LUNG MORAN ARE CLEAR TO AUSCULTATION BILATERALLY. GOOD MOVEMENT OF AIR . HEART:S1, S2 IN A REGULAR RATE AND RHYTHM. NO SIGNIFICANT MURMURS, RUBS OR GALLOPS NOTED . ASSESSMENTS NEUROPATHY - G62.9 (PRIMARY) LUMBAR FACET ARTHROPATHY - M46.96 LUMBOSACRAL RADICULOPATHY - M54.17 TREATMENT NEUROPATHY NOTES: CONTINUE CONSERVATIVE CARE. PROCEDURE CODES FA211 ESTABILISHED PATIENT [facility] CHARGE DISPOSITION & COMMUNICATION FOLLOW UP PT WILL CALL ELECTRONICALLY SIGNED BY AMA SHAH ON 09/10/2018 AT 09:38 AM EST DISCLAIMER : THIS IS A VISIT SUMMARY EXTRACTED FROM THE [employer] [facility] CHART. IT IS NOT A COPY OF THE [employer] [facility] PROGRESS NOTE. CARMEN
== END ==
LOC: M PAIN 08:45
PROVIDERS: ATTEND Nurse Practitioner Family
DX: G62.9 Polyneuropathy, unspecified (principal); M46.96 Unspecified inflammatory spondylopathy, lumbar region; M54.17 Radiculopathy, lumbosacral region; G89.29 Other chronic pain; J44.9 Chronic obstructive pulmonary disease, unspecified; I10 Essential (primary) hypertension; E78.5 Hyperlipidemia, unspecified; F41.9 Anxiety disorder, unspecified; F10.10 Alcohol abuse, uncomplicated; I48.0 Paroxysmal atrial fibrillation; Z79.01 Long term (current) use of anticoagulants; Z79.82 Long term (current) use of aspirin; Z79.899 Other long term (current) drug therapy; Z88.8 Allergy status to other drugs, medicaments and biological substances; Z87.891 Personal history of nicotine dependence; Z86.79 Personal history of other diseases of the circulatory system; Z86.73 Personal history of transient ischemic attack (TIA), and cerebral infarction without residual deficits; Z85.118 Personal history of other malignant neoplasm of bronchus and lung

== ENCOUNTER → 2019-01-23 | Outpatient (CLI) | payer OTHER ==
[~2019-01-23] MED LIST changes: -/ADVA50050; -/ADVA50050 INH; -/FENO48TA PO; -/FENT25PA TD; -/MOXI40TA OR; -/OXAZ10CA; -/OXAZ10CA PO; -/PANT40TA OR; -/PANT40TA PO; -/TIOT18INH INH; +ADVA1AER2; +ADVA1AER2 INH; +AVEL1TAB2 OR; +FENT1DIS14 TD; +LATA0.0013 OU; -LATA5OPD OU; +OXAZ10CA25; +OXAZ10CA25 PO; +OXYC1TAB23 PO; -PERCOCET PO; +PROT1TAB2 OR; +PROT1TAB2 PO; +SPIR1CAP INH; +TRIC1TAB PO
--- NOTE | 2019-01-23 11:03 | REP ---
Low-dose lung screening CT of the chest: The study is performed without IV contrast. The images are presented at lung windowing only. Comparison is 04/27/2018. The right lower lobe infiltrate and small right pleural effusion on the prior study have resolved. There is a 4 ml lung nodule anteriorly in the left upper lobe on image 39. In retrospect this was present previously and is unchanged in size. This is a category II lung nodule. There are two nodules in the right lower lobe adjacent to the major fissure. The largest nodule measures 12 mm. This is unchanged. This is a category II lung nodule. The smaller nodule measures 7 mm. This measured 11 mm in previously. This is a category II lung nodule. There are no other lung nodules or masses. There are no infiltrates or effusions. There are scattered bulla throughout the lung sandoval bilaterally. Impression: There are three lung nodules as described. Two of these lung nodules are unchanged in size. One of the nodules has decreased in size. These are all category II lung nodules. The probability of malignancy is less than 1%. Depending on risk factors, annual follow-up low-dose lung screening CT might be considered. On the prior study there was a right lower lobe infiltrate and small right pleural effusion. These have resolved. Electronically Signed by Lico Chairez MD 01/23/2019 10:56 A
== END ==
LOC: M RAD 08:45
PROVIDERS: ATTEND Internal Medicine
DX: Z85.118 Personal history of other malignant neoplasm of bronchus and lung (principal); F17.210 Nicotine dependence, cigarettes, uncomplicated; Z12.2 Encounter for screening for malignant neoplasm of respiratory organs

== ENCOUNTER → 2019-05-29 | Outpatient (CLI) | payer OTHER ==
[~2019-05-29] MED LIST changes: +FENO48TA13 PO; -FENO48TA2 PO; +NICO2GUM52 PO; -NICO2GUM62 PO
--- NOTE | 2019-05-29 11:48 | REP ---
Three views chest: 05/29/2019. Indication: Chest pain. Comparison: 04/26/2018. Findings: Minimal air space consolidation of the right lower lobe is present. There is a questionable nodular density within the left lower lobe which is not appreciated on the lateral imaging. Mild blunting of the left costophrenic angle is present with a small effusion suspected. There is no pneumothorax. The cardiomediastinal silhouette is unremarkable. Mediastinal surgical clips are noted. Impression: Suspected small right lower lobe pneumonia. Possible left lower lobe pulmonary nodule only appreciated on the PA view. Small left pleural effusion. Electronically Signed by Christopher Taylor DO 05/29/2019 11:40 A
== END ==
LOC: M RAD 11:00
PROVIDERS: ATTEND Internal Medicine
DX: R91.1 Solitary pulmonary nodule (principal); J91.8 Pleural effusion in other conditions classified elsewhere

== ENCOUNTER → 2019-07-05 | Outpatient (CLI) | payer OTHER ==
--- NOTE | 2019-07-05 08:46 | REP ---
Clinical: Follow up abnormal findings. Technique: Axial noncontrast images from the thoracic inlet to the upper abdomen with coronal and sagittal re-formations. Comparison: 01/23/2019, 04/27/2018, 04/16/2016, 02/27/2012 . Findings: The previously identified 4 mm noncalcified density in the anterior periphery of the left upper lobe has resolved. The two noncalcified perifissural nodules inseparable from the right major fissure in the mid lung zone (image 73) remain unchanged through 2016 and only minimally increased when compared to 2011. These findings likely represent chronic granulomata. The underlying lung sandoval demonstrate moderate/advanced chronic COPD and emphysematous changes along with scattered scarring and primarily left basilar subpleural fibrosis. No new acute nodule, mass or consolidation is appreciated. No effusion. No pneumothorax. Tracheobronchial tree is relatively patent. The mediastinum demonstrates stable atherosclerotic changes to the thoracic aorta and coronary arteries along with partially calcified lymph nodes. Musculoskeletal structures are intact. Impression: 1. The two persistent noncalcified nodules inseparable from the right major fissure likely represent chronic granulomata and appear unchanged compared 09/27/2015 and only minimally increased in size when compared to 2011. 2. The previously identified small density in the left upper lobe has resolved. 3. Underlying chronic COPD/emphysematous disease with primarily left basilar fibrosis again noted and no new acute mediastinal or pleuroparenchymal process is appreciated. Electronically Signed by Mu Curry MD 07/05/2019 08:38 A
== END ==
LOC: M RAD 07:42
PROVIDERS: ATTEND Internal Medicine Pulmonary Disease
DX: R91.1 Solitary pulmonary nodule (principal)

== ENCOUNTER → 2019-12-20 | Outpatient (REF) | payer OTHER ==
[~2019-12-20] MED LIST changes: -FENO48TA13 PO; +FENO48TA7 PO; -NICO2GUM52 PO; +NICO2GUM54 PO; -TRAZ-163 PO; +TRAZ-257 PO
== END ==
LOC: M SFHCPLAZ 14:45
DX: R39.15 Urgency of urination (principal)

== ENCOUNTER → 2019-12-26 | Outpatient (CLI) | payer OTHER ==
[~2019-12-26] MED LIST changes: +AMLO1TAB24 PO; -AMLO5TAB6 PO; +ASPI-546 PO; -ASPI1TAB15 PO; +DILT30TA PO; +LABE100T4 PO; -LABE10TAB PO; +LISI10TA22 PO; -LISI10TA4 PO; -LISI40TA PO; +LISI40TA4 PO; +NICO-13 PO; +NICO-264 MT; -NICO2GUM54 PO; -NICO4LOZ MT; +PANT40TA29 PO; -PANT40TA3 PO
[2019-12-26 11:15] LABS: APPEARANCE, URINE CLEAR (CLEAR); BACTERIA, URINE AUTO NEGATIVE (NEGATIVE); BILIRUBIN, URINE AUTO NEGATIVE (NEGATIVE); BLOOD, URINE BLOOD NEGATIVE (NEGATIVE); COLOR, URINE YELLOW (YELLOW); GLUCOSE, URINE (UA) AUTO NEGATIVE (NEGATIVE); KETONE, URINE AUTO NEGATIVE (NEGATIVE); LEUKOCYTE ESTERASE, URINE AUTO NEGATIVE (NEGATIVE); NITRITE, URINE AUTO NEGATIVE (NEGATIVE); PROTEIN, URINE AUTO NEGATIVE (NEGATIVE); RBC, URINE AUTO 4 /HPF (0-3); SPECIFIC GRAVITY URINE AUTO 1.011 (1.002-1.035); SQUAMOUS EPITHELIAL CELL UR AU 0 /HPF (0-6); WBC, URINE AUTO 0 /HPF (0-3)
== END ==
LOC: M LAB 10:26
PROVIDERS: ATTEND Obstetrics & Gynecology
DX: R39.15 Urgency of urination (principal)

== ENCOUNTER → 2020-01-13 | Outpatient (REF) | payer OTHER ==
[~2020-01-13] MED LIST changes: -LABE100T4 PO; +LABE10TAB PO; -LISI10TA22 PO; +LISI10TA4 PO; +LISI40TA PO; -LISI40TA4 PO
[2020-01-13 15:14] LABS: APPEARANCE, URINE CLEAR (CLEAR); BACTERIA, URINE AUTO NEGATIVE (NEGATIVE); BILIRUBIN, URINE AUTO NEGATIVE (NEGATIVE); BLOOD, URINE BLOOD NEGATIVE (NEGATIVE); COLOR, URINE YELLOW (YELLOW); GLUCOSE, URINE (UA) AUTO NEGATIVE (NEGATIVE); KETONE, URINE AUTO NEGATIVE (NEGATIVE); LEUKOCYTE ESTERASE, URINE AUTO NEGATIVE (NEGATIVE); NITRITE, URINE AUTO NEGATIVE (NEGATIVE); PROTEIN, URINE AUTO NEGATIVE (NEGATIVE); RBC, URINE AUTO 0 /HPF (0-3); SPECIFIC GRAVITY URINE AUTO 1.009 (1.002-1.035); SQUAMOUS EPITHELIAL CELL UR AU 0 /HPF (0-6); UROBILINOGEN, URINE AUTO 0.2 mg/dL (0.0-2.0); WBC, URINE AUTO 1 /HPF (0-3)
== END ==
LOC: M SFHCPLAZ 14:28
PROVIDERS: ATTEND Family Medicine
DX: R31.29 Other microscopic hematuria (principal)

== ENCOUNTER → 2020-01-22 | Outpatient (CLI) | payer OTHER | LOC: M LABSMTC 13:33 | PROVIDERS: ATTEND Anesthesiology | DX: Z01.818 Encounter for other preprocedural examination (principal); Z11.59 Encounter for screening for other viral diseases | CPT/HCPCS: C9803; U0003 ==

== ENCOUNTER 2020-01-27 08:37 | Day surgery (SDC) | payer OTHER ==
[~2020-01-27] VITALS: Ht 177.8 cm; Wt 61.2 kg
[~2020-01-27 08:37] MED LIST changes: +propofoL 200 MG/20 ML VIAL As Ordered ONE
[2020-01-27] MEDS ORDERED: NS 1,000 ML IV ONE (10:00)
--- NOTE | 2020-01-27 10:26 | ROOR ---
Patient Name: Ho Zaman Procedure Date: 01/27/2020 9:51 AM Date of : 1960 Age: 59 Room: [facility] Gender: Male Note Status: Finalized Procedure: Colonoscopy Indications: High risk colon cancer surveillance: Personal history of colonic polyps Providers: Omar LEDEZMA MD Referring MD: KARISSA JASSO MD Requesting Provider: Medicines: Monitored Anesthesia Care Complications: No immediate complications. Procedure: Pre-Anesthesia Assessment: - The heart rate, respiratory rate, oxygen saturations, blood pressure, adequacy of pulmonary ventilation, and response to care were monitored throughout the procedure. The Colonoscope was introduced through the anus and advanced to the terminal ileum, with identification of the appendiceal orifice and IC valve. The colonoscopy was performed without difficulty. The patient tolerated the procedure well. The quality of the bowel preparation was good. Findings: The perianal and digital rectal examinations were normal. Four sessile polyps were found in the recto-sigmoid colon, splenic flexure and ascending colon. The polyps were 5 to 7 mm in size. These polyps were removed with a cold snare. Resection and retrieval were complete. To prevent bleeding after the polypectomy, one hemostatic clip was successfully placed. There was no bleeding at the end of the procedure. Small Internal Hemorrhoids. The exam was otherwise without abnormality on direct and retroflexion views. Impression: - Four 5 to 7 mm polyps at the recto-sigmoid colon, at the splenic flexure and in the ascending colon, removed with a cold snare. Resected and retrieved. Clip was placed. - Small Internal Hemorrhoids. - The examination was otherwise normal on direct and retroflexion views. Recommendation: - Repeat colonoscopy in 3 years for surveillance. - Telephone endoscopist for pathology results in 2 weeks. - Resume Eliquis (apixaban) at prior dose in 2 days. - Resume Eliquis in am of 01/29/20 Omar Ledezma MD Omar LEDEZMA MD 01/27/2020 10:26:31 AM Electronically signed by Omar LEDEZMA MD Number of Addenda: 0 Note Initiated On: 01/27/2020 9:51 AM Estimated Blood Loss: Estimated blood loss: none.
[2020-01-27 10:45] VITALS: BP 133/63
== END 2020-01-27 11:34 | disposition home or self-care (01) ==
LOC: M OPP 08:37
PROVIDERS: ATTEND Internal Medicine Gastroenterology
DX: D12.7 Benign neoplasm of rectosigmoid junction (principal); D12.3 Benign neoplasm of transverse colon; D12.4 Benign neoplasm of descending colon; K64.8 Other hemorrhoids; Z86.010 Personal history of colon polyps; Z09 Encounter for follow-up examination after completed treatment for conditions other than malignant neoplasm

== ENCOUNTER → 2020-08-26 | Outpatient (CLI) | payer OTHER ==
[~2020-08-26] MED LIST changes: +LABE100T4 PO; -LABE10TAB PO; +LISI10TA22 PO; -LISI10TA4 PO; -LISI40TA PO; +LISI40TA4 PO; -propofoL 200 MG/20 ML VIAL As Ordered ONE
--- NOTE | 2020-08-26 09:00 | REP ---
INDICATION: OTHER NON SPECIFIC ABNORMAL FINDING OF LUNG FIELD COMPARISON: Multiple examinations including 07/05/2019, 04/27/2018 TECHNIQUE: Axial noncontrast images from the thoracic inlet to the upper abdomen with coronal and sagittal reformations. This CT examination was performed using the following dose reduction techniques: Automated exposure control, adjustment of mA and/or kv according to the patient's size, and use of iterative reconstruction technique. FINDINGS: Advanced emphysematous changes are again noted with bronchiectasis, scattered bullae, and fibrosis/scarring. Two right perifissural nodules adjacent to the major fissure measuring up to 11 mm are again identified and appears stable. No acute consolidation, new suspicious nodule or mass lesion identified. No effusion. No pneumothorax. No obvious axillary, hilar, or mediastinal adenopathy. Atherosclerotic changes to the thoracic aorta and coronary arteries noted without aortic aneurysm or cardiomegaly. No pericardial effusion. Musculoskeletal structures are intact. Chronic atrophic appearance to the right kidney. Bilateral adrenal glands are normal. IMPRESSION: Advanced emphysematous disease. Stable right perifissural nodules measuring up to 11 mm. No new acute mediastinal or pleuroparenchymal process appreciated. <Electronically signed by Mu Curry > 08/26/20 0837
== END ==
LOC: M RAD 07:43
PROVIDERS: ATTEND Internal Medicine Pulmonary Disease
DX: R91.8 Other nonspecific abnormal finding of lung field (principal)

== ENCOUNTER 2020-12-08 17:03 | Emergency (ER) | payer OTHER ==
[~2020-12-08] VITALS: Ht 177.8 cm; Wt 66.8 kg
[2020-12-08 17:04] VITALS: BP 159/77
[2020-12-09] MEDS ORDERED: DRON400T (11:49)
[2020-12-09] MEDS ORDERED: OXYB15TA14 (11:49)
[2020-12-09] MEDS ORDERED: TAMS1CAP17 (11:49)
== END 2020-12-08 17:10 | disposition left against medical advice (07) ==
LOC: M ED 17:03
DX: Z53.21 Procedure and treatment not carried out due to patient leaving prior to being seen by health care provider (principal)

== ENCOUNTER 2020-12-09 10:42 | Emergency (ER) | payer OTHER ==
[~2020-12-09] VITALS: Ht 177.8 cm; Wt 67.3 kg
[2020-12-09] MEDS ORDERED: DRON400T (11:49)
[2020-12-09] MEDS ORDERED: OXYB15TA14 (11:49)
[2020-12-09] MEDS ORDERED: TAMS1CAP17 (11:49)
--- NOTE | 2020-12-09 13:13 | REP ---
INDICATION: h/o fevers, sob COMPARISON: 05/29/2019 TECHNIQUE: PA and lateral. FINDINGS: The mediastinum and cardiac silhouette are normal. The lung sandoval demonstrate stable chronic changes without acute consolidation, effusion, or pneumothorax. The skeletal structures are intact and normal. IMPRESSION: No acute cardiopulmonary process. <Electronically signed by Mu Curry > 12/09/20 [id number]
[2020-12-09 13:34] LABS: HEMATOCRIT 37.2 % (42.0-52.0); HEMOGLOBIN 12.2 g/dl (13.5-17.5); MEAN CORPUSCULAR HEMOGLOBIN 32.9 pg (27.0-33.0); MEAN CORPUSCULAR HGB CONC 32.8 g/dl (32.0-36.5); MEAN CORPUSCULAR VOLUME 100.3 fl (80.0-96.0); PLATELET COUNT, AUTOMATED 209 10^3/uL (150-450); RED BLOOD COUNT 3.71 10^6/uL (4.30-6.10); WHITE BLOOD COUNT 6.5 10^3/uL (4.0-10.0)
[2020-12-09 14:01] LABS: ALBUMIN 3.5 GM/DL (3.2-5.2); ALT/SGPT 20 U/L (12-78); BILIRUBIN,DIRECT 0.1 MG/DL (0.0-0.2); BILIRUBIN,TOTAL 0.5 MG/DL (0.2-1.0); BLOOD UREA NITROGEN 9 MG/DL (7-18); CALCIUM LEVEL 8.9 MG/DL (8.8-10.2); CARBON DIOXIDE LEVEL 27 MEQ/L (21-32); CHLORIDE LEVEL 107 MEQ/L (98-107); CK-MB VALUE MASS 1.6 NG/ML (<3.6); CPK CREATINE PHOSPHOKINASE 134 U/L (39-308); GLOMERULAR FILTRATION RATE > 60.0 (>49); GLUCOSE, FASTING 88 MG/DL (70-100); LIPASE 48 U/L (73-393); MB/CK RELATIVE INDEX 1.19 (< OR =4); SODIUM LEVEL 139 MEQ/L (136-145); TOTAL PROTEIN 7.2 GM/DL (6.4-8.2); TROPONIN I < 0.02 NG/ML (< 0.10)
[2020-12-09 14:11] LABS: BASOPHILS 3 % (0-1); EOSINOPHILS 4 % (0-3); LYMPHOCYTES 43 % (16-44); NEUTROPHILS 50 % (28-66)
[2020-12-09 14:20] LABS: PLATELET ESTIMATE NORMAL (NORMAL)
[2020-12-09 14:24] LABS: APPEARANCE, URINE CLEAR (CLEAR); BACTERIA, URINE AUTO NEGATIVE (NEGATIVE); BILIRUBIN, URINE AUTO NEGATIVE (NEGATIVE); BLOOD, URINE BLOOD NEGATIVE (NEGATIVE); COLOR, URINE STRAW (YELLOW); GLUCOSE, URINE (UA) AUTO NEGATIVE (NEGATIVE); KETONE, URINE AUTO NEGATIVE (NEGATIVE); LEUKOCYTE ESTERASE, URINE AUTO NEGATIVE (NEGATIVE); NITRITE, URINE AUTO NEGATIVE (NEGATIVE); PROTEIN, URINE AUTO NEGATIVE (NEGATIVE); RBC, URINE AUTO 0 /HPF (0-3); SPECIFIC GRAVITY URINE AUTO 1.005 (1.002-1.035); SQUAMOUS EPITHELIAL CELL UR AU 0 /HPF (0-6); UROBILINOGEN, URINE AUTO 0.2 mg/dL (0.0-2.0); WBC, URINE AUTO 0 /HPF (0-3)
[2020-12-09 14:53] VITALS: BP 148/72
--- NOTE | 2020-12-09 20:54 | ECGEPIP ---
[facility] - ED Test Date: 2020-12-09 Pat Name: GRETCHEN HILL Department: Room: - Gender: Male Kitchen And Counter Worker: MEENA : 1960 Requested By: MARIA LUZ Wells PA-C Order Number: [id number] Reading MD: Valerie Low Measurements Intervals [place] Rate: 49 P: 77 HI: 126 QRS: 13 QRSD: 88 T: 38 QT: 518 QTc: 467 Interpretive Statements Sinus bradycardia irbbb prolonged qtc decreased rate 04/29/18 Electronically Signed on 12-09-2020 20:54:08 EDT by Valerie Low
== END 2020-12-09 14:55 | disposition home or self-care (01) ==
LOC: M ED 10:42
DX: R53.83 Other fatigue (principal); R50.9 Fever, unspecified; R00.1 Bradycardia, unspecified; T50.B95A Adverse effect of other viral vaccines, initial encounter; I45.19 Other right bundle-branch block; R94.31 Abnormal electrocardiogram [ECG] [EKG]; I11.0 Hypertensive heart disease with heart failure; I50.9 Heart failure, unspecified; I48.91 Unspecified atrial fibrillation; I25.2 Old myocardial infarction; J45.909 Unspecified asthma, uncomplicated; J44.9 Chronic obstructive pulmonary disease, unspecified; K21.9 Gastro-esophageal reflux disease without esophagitis; M54.9 Dorsalgia, unspecified; G89.29 Other chronic pain; F41.9 Anxiety disorder, unspecified; F33.9 Major depressive disorder, recurrent, unspecified; F10.11 Alcohol abuse, in remission; E78.5 Hyperlipidemia, unspecified; H54.42A3 Blindness left eye category 3, normal vision right eye; H40.9 Unspecified glaucoma; Z79.82 Long term (current) use of aspirin; Z79.01 Long term (current) use of anticoagulants; Z91.048 Other nonmedicinal substance allergy status; Z88.8 Allergy status to other drugs, medicaments and biological substances; Z86.73 Personal history of transient ischemic attack (TIA), and cerebral infarction without residual deficits; Z85.118 Personal history of other malignant neoplasm of bronchus and lung; Z90.2 Acquired absence of lung [part of]; Z82.49 Family history of ischemic heart disease and other diseases of the circulatory system; Z98.890 Other specified postprocedural states

== ENCOUNTER → 2021-05-25 | Outpatient (REF) | payer OTHER ==
[~2021-05-25] MED LIST changes: +DRON400T; -FENO48TA7 PO; +FENO48TA8 PO; +OXYB15TA14; +TAMS1CAP17
== END ==
LOC: M SFHCPLAZ 14:05
PROVIDERS: ATTEND Family Medicine
DX: Z53.20 Procedure and treatment not carried out because of patient's decision for unspecified reasons (principal)

== ENCOUNTER → 2021-07-19 | Outpatient (CLI) | payer OTHER ==
[~2021-07-19] MED LIST changes: +LOSA100T45 PO; -LOSA100T50 PO
[2021-07-19 12:25] LABS: HEMOGLOBIN A1c 5.2 %
== END ==
LOC: M LAB 10:26
PROVIDERS: ATTEND Family Medicine
DX: Z13.1 Encounter for screening for diabetes mellitus (principal)

== ENCOUNTER → 2021-10-18 | Outpatient (CLI) | payer OTHER ==
[~2021-10-18] MED LIST changes: -DRON400T; +DRON400T PO; +LORA-674 PO; -OXYB15TA14; +OXYB15TA14 PO; -TAMS1CAP17; +TAMS1CAP17 PO; +XALA0.007 OU
== END ==
LOC: M PLAIMG 13:32
PROVIDERS: ATTEND Nurse Practitioner Family
DX: E78.5 Hyperlipidemia, unspecified (principal); I48.91 Unspecified atrial fibrillation; I25.10 Atherosclerotic heart disease of native coronary artery without angina pectoris; I25.84 Coronary atherosclerosis due to calcified coronary lesion

== ENCOUNTER 2021-10-21 07:14 | Inpatient (IN) | payer OTHER ==
[~2021-10-21] VITALS: Ht 177.8 cm; Wt 65.6 kg
[~2021-10-21 07:14] MED LIST changes: -LORA-674 PO; -XALA0.007 OU
[2021-10-21] MEDS ORDERED: diazePAM 10MG/2ML SYRINGE (J3360 PER 5MG) IV ONE (08:30)
[2021-10-21] MEDS ORDERED: LIDOCAINE 5% (LIDODERM) PATCH TD ONE (08:30)
[2021-10-21] MEDS ORDERED: ACETAMINOPHEN 500 MG TAB PO ONE (08:30)
[2021-10-21 09:03] LABS: APPEARANCE, URINE CLEAR (CLEAR); BACTERIA, URINE AUTO NEGATIVE (NEGATIVE); BILIRUBIN, URINE AUTO NEGATIVE (NEGATIVE); BLOOD, URINE BLOOD NEGATIVE (NEGATIVE); COLOR, URINE STRAW (YELLOW); GLUCOSE, URINE (UA) AUTO NEGATIVE (NEGATIVE); KETONE, URINE AUTO NEGATIVE (NEGATIVE); LEUKOCYTE ESTERASE, URINE AUTO NEGATIVE (NEGATIVE); NITRITE, URINE AUTO NEGATIVE (NEGATIVE); PROTEIN, URINE AUTO NEGATIVE (NEGATIVE); RBC, URINE AUTO 0 /HPF (0-3); SPECIFIC GRAVITY URINE AUTO 1.004 (1.002-1.035); SQUAMOUS EPITHELIAL CELL UR AU 0 /HPF (0-6); UROBILINOGEN, URINE AUTO 0.2 mg/dL (0.0-2.0); WBC, URINE AUTO 0 /HPF (0-3)
[2021-10-21 09:25] LABS: BASO # 0.1 10^3/uL (0.0-0.2); EOS # 0.1 10^3/uL (0.0-0.5); EOS % 0.9 % (0.0-3.0); HEMATOCRIT 41.8 % (42.0-52.0); HEMOGLOBIN 14.4 g/dl (13.5-17.5); LYMPH # 1.5 10^3/uL (1.5-5.0); LYMPH % 16.9 % (24.0-44.0); MEAN CORPUSCULAR HEMOGLOBIN 33.6 pg (27.0-33.0); MEAN CORPUSCULAR HGB CONC 34.4 g/dl (32.0-36.5); MEAN CORPUSCULAR VOLUME 97.4 fl (80.0-96.0); MONO # 0.6 10^3/uL (0.0-0.8); MONO % 6.5 % (2.0-8.0); NEUTROPHILS # 6.8 10^3/uL (1.5-8.5); NEUTROPHILS % 74.3 % (36.0-66.0); PLATELET COUNT, AUTOMATED 217 10^3/uL (150-450); RED BLOOD COUNT 4.29 10^6/uL (4.30-6.10); WHITE BLOOD COUNT 9.1 10^3/uL (4.0-10.0)
[2021-10-21 09:50] LABS: BLOOD UREA NITROGEN 8 MG/DL (7-18); CALCIUM LEVEL 9.2 MG/DL (8.8-10.2); CARBON DIOXIDE LEVEL 23 MEQ/L (21-32); CHLORIDE LEVEL 109 MEQ/L (98-107); CREATININE FOR GFR 1.19 MG/DL (0.70-1.30); GLOMERULAR FILTRATION RATE > 60.0 (>49); GLUCOSE, FASTING 105 MG/DL (70-100); POTASSIUM SERUM 4.3 MEQ/L (3.5-5.1); SODIUM LEVEL 139 MEQ/L (136-145)
[2021-10-21] MEDS ORDERED: MORPHINE 4 MG/ML 1ML VIAL/SYRINGE IV ONE ×2 (10:15→12:10)
[2021-10-21] MEDS ORDERED: methylPREDNISolone 125MG 2ML VIAL IV ONE (10:15)
[2021-10-21] MEDS ORDERED: fentaNYL 100 MCG/2 ML INJECTION IV ONE (13:25)
[2021-10-21] MEDS ORDERED: CYCLOBENZAPRINE 10MG TABLET PO ONE (16:00)
[2021-10-21] MEDS ORDERED: HYDROMORPHONE HCL 0.5 MG/ 0.5 ML SYRINGE (J1170 PER 1) IV ONE (18:40)
[2021-10-21] MEDS ORDERED: **NOTE PATIENT COMMENT** MISC XX ONE (21:00)
[2021-10-21] MEDS ORDERED: ACETAMINOPHEN TAB 650MG DOSE (2X325MG) PO PRN (21:40)
[2021-10-21] MEDS ORDERED: ELIQ5TAB PO (21:49)
[2021-10-21] MEDS ORDERED: XALA0.007 OU (21:51)
[2021-10-21] MEDS ORDERED: LISI40TA4 PO (21:53)
[2021-10-21] MEDS ORDERED: LORA-674 PO (21:53)
[2021-10-21] MEDS ORDERED: HOME MED LIST COMPLETE! XX SCH (21:55)
[2021-10-21 22:04] LABS: RSV AMPLIFICATION NEGATIVE (NEGATIVE)
[2021-10-21] MEDS ORDERED: NICOTINE POLACRILEX 2 MG GUM PO PRN (22:15)
[2021-10-21] MEDS ORDERED: ALBUTEROL 90 MCG/ACT 8GM HFA INHALER INH PRN (22:20)
[2021-10-22] MEDS: MORPHINE 4 MG/ML 1ML VIAL/SYRINGE IV PRN ×2 (00:10→10:13)
[2021-10-22 00:55] VITALS: BP 159/75
[2021-10-22] MEDS: TAMSULOSIN 0.4 MG CAP PO SCH ×2 (01:22→20:27)
[2021-10-22] MEDS: oxyBUTYnin *DITROPAN XL* 5 MG TABCR PO SCH ×2 (01:22→20:28)
[2021-10-22] MEDS: GABAPENTIN 400MG CAP PO SCH ×4 (01:22→20:27)
[2021-10-22] MEDS: APIXABAN 5 MG TAB (ELIQUIS) PO SCH ×3 (01:24→20:27)
[2021-10-22] MEDS: BACLOFEN 10 MG TAB PO SCH ×3 (01:24→20:27)
[2021-10-22] MEDS: LATANOPROST 0.005% OPHTH SOLN 2.5 ML OU SCH ×2 (01:34→20:31)
[2021-10-22] MEDS: DRONEDARONE 400 MG TAB (MULTAQ) PO SCH ×3 (01:34→20:27)
[2021-10-22] MEDS ORDERED: PERCOCET 5MG/325MG TAB PO ONE (02:30)
[2021-10-22 06:16] VITALS: BP 153/73
[2021-10-22] MEDS: LIDOCAINE 5% (LIDODERM) PATCH TD SCH (08:18)
[2021-10-22] MEDS: ATORVASTATIN 20 MG TAB PO SCH (08:19)
[2021-10-22] MEDS: PERCOCET 5MG/325MG TAB PO PRN ×3 (08:21→20:30)
[2021-10-22] MEDS: PANTOPRAZOLE 40MG TAB (PROTONIX) PO SCH (08:21)
[2021-10-22] MEDS: NICOTINE POLACRILEX 2 MG GUM PO PRN ×2 (09:56→14:38)
[2021-10-22] MEDS: ASPIRIN 81MG ENTERIC TABLET PO SCH (09:56)
[2021-10-22 14:00] VITALS: BP 109/78
[2021-10-22 14:40] VITALS: BP 158/72
[2021-10-22 18:00] VITALS: BP 130/71
[2021-10-22] MEDS: **NOTE PATIENT COMMENT** MISC XX SCH (20:35)
[2021-10-23] MEDS: PERCOCET 5MG/325MG TAB PO PRN ×5 (01:40→22:35)
[2021-10-23 05:38] VITALS: BP 103/60
[2021-10-23] MEDS: BACLOFEN 10 MG TAB PO SCH ×2 (09:00→21:23)
[2021-10-23] MEDS: GABAPENTIN 400MG CAP PO SCH ×3 (09:31→21:23)
[2021-10-23] MEDS: ASPIRIN 81MG ENTERIC TABLET PO SCH (09:31)
[2021-10-23] MEDS: PANTOPRAZOLE 40MG TAB (PROTONIX) PO SCH (09:32)
[2021-10-23] MEDS: APIXABAN 5 MG TAB (ELIQUIS) PO SCH ×2 (09:32→21:23)
[2021-10-23] MEDS: DRONEDARONE 400 MG TAB (MULTAQ) PO SCH ×2 (09:32→21:23)
[2021-10-23] MEDS: ATORVASTATIN 20 MG TAB PO SCH (09:32)
[2021-10-23] MEDS: LIDOCAINE 5% (LIDODERM) PATCH TD SCH (09:34)
[2021-10-23] MEDS: NICOTINE POLACRILEX 2 MG GUM PO PRN ×2 (09:35→21:24)
[2021-10-23] MEDS: ACETAMINOPHEN 500 MG TAB PO SCH (17:00)
[2021-10-23] MEDS: DICLOFENAC EPOLAMINE 1.3 % PATCH TOP SCH (17:01)
[2021-10-23 20:42] VITALS: BP 146/81
[2021-10-23] MEDS: TAMSULOSIN 0.4 MG CAP PO SCH (21:23)
[2021-10-23] MEDS: oxyBUTYnin *DITROPAN XL* 5 MG TABCR PO SCH (21:23)
[2021-10-23] MEDS: **NOTE PATIENT COMMENT** MISC XX SCH (21:26)
[2021-10-23] MEDS: LATANOPROST 0.005% OPHTH SOLN 2.5 ML OU SCH (21:26)
[2021-10-24] MEDS: ACETAMINOPHEN 500 MG TAB PO SCH ×4 (00:20→18:38)
[2021-10-24] MEDS: PERCOCET 5MG/325MG TAB PO PRN ×3 (04:17→16:32)
[2021-10-24 04:59] VITALS: BP 117/63
[2021-10-24] MEDS: DICLOFENAC EPOLAMINE 1.3 % PATCH TOP SCH ×2 (05:02→18:38)
[2021-10-24] MEDS: BACLOFEN 10 MG TAB PO SCH ×2 (09:33→21:22)
[2021-10-24] MEDS: ATORVASTATIN 20 MG TAB PO SCH (09:33)
[2021-10-24] MEDS: PANTOPRAZOLE 40MG TAB (PROTONIX) PO SCH (09:33)
[2021-10-24] MEDS: GABAPENTIN 400MG CAP PO SCH ×3 (09:33→21:21)
[2021-10-24] MEDS: DRONEDARONE 400 MG TAB (MULTAQ) PO SCH ×2 (09:35→21:22)
[2021-10-24] MEDS: ASPIRIN 81MG ENTERIC TABLET PO SCH (09:35)
[2021-10-24] MEDS: APIXABAN 5 MG TAB (ELIQUIS) PO SCH ×2 (09:35→21:21)
[2021-10-24] MEDS: LIDOCAINE 5% (LIDODERM) PATCH TD SCH (09:37)
[2021-10-24] MEDS ORDERED: KETOROLAC 30 MG/ML 1ML VIAL IV ONE (13:00)
[2021-10-24] MEDS: NICOTINE POLACRILEX 2 MG GUM PO PRN ×2 (13:26→18:39)
[2021-10-24] MEDS ORDERED: SENNA 8.6 MG TAB (SENOKOT) PO PRN (16:00)
[2021-10-24 21:00] VITALS: BP 107/69
[2021-10-24] MEDS: TAMSULOSIN 0.4 MG CAP PO SCH (21:21)
[2021-10-24] MEDS: oxyBUTYnin *DITROPAN XL* 5 MG TABCR PO SCH (21:22)
[2021-10-24] MEDS: LATANOPROST 0.005% OPHTH SOLN 2.5 ML OU SCH (21:23)
[2021-10-24] MEDS: **NOTE PATIENT COMMENT** MISC XX SCH (21:24)
[2021-10-25] MEDS: PERCOCET 5MG/325MG TAB PO PRN ×4 (00:24→23:15)
[2021-10-25] MEDS: DICLOFENAC EPOLAMINE 1.3 % PATCH TOP SCH ×2 (05:25→18:12)
[2021-10-25] MEDS: ACETAMINOPHEN 500 MG TAB PO SCH ×4 (05:26→18:00)
[2021-10-25] MEDS: GABAPENTIN 400MG CAP PO SCH ×3 (09:47→20:01)
[2021-10-25] MEDS: ATORVASTATIN 20 MG TAB PO SCH (09:47)
[2021-10-25] MEDS: BACLOFEN 10 MG TAB PO SCH ×2 (09:48→20:03)
[2021-10-25] MEDS: APIXABAN 5 MG TAB (ELIQUIS) PO SCH ×2 (09:48→20:01)
[2021-10-25] MEDS: ASPIRIN 81MG ENTERIC TABLET PO SCH (09:48)
[2021-10-25] MEDS: PANTOPRAZOLE 40MG TAB (PROTONIX) PO SCH (09:48)
[2021-10-25] MEDS: DRONEDARONE 400 MG TAB (MULTAQ) PO SCH ×2 (09:49→20:03)
[2021-10-25] MEDS: LIDOCAINE 5% (LIDODERM) PATCH TD SCH (09:49)
[2021-10-25] MEDS: NICOTINE POLACRILEX 2 MG GUM PO PRN (11:29)
[2021-10-25] MEDS ORDERED: MOM 30ML SUSPENSION UDC PO ONE (14:05)
[2021-10-25] MEDS ORDERED: MIRALAX *UNIT DOSE* 17GM PACKET PO PRN (14:05)
[2021-10-25] MEDS: TAMSULOSIN 0.4 MG CAP PO SCH (20:01)
[2021-10-25] MEDS: oxyBUTYnin *DITROPAN XL* 5 MG TABCR PO SCH (20:02)
[2021-10-25] MEDS: LATANOPROST 0.005% OPHTH SOLN 2.5 ML OU SCH (20:04)
[2021-10-25] MEDS: **NOTE PATIENT COMMENT** MISC XX SCH (20:05)
[2021-10-25 21:00] VITALS: BP 157/97
[2021-10-26] VITALS (8 sets, daily range): BP systolic 91–141; BP diastolic 50–81
[2021-10-26] MEDS: DICLOFENAC EPOLAMINE 1.3 % PATCH TOP SCH ×2 (05:25→17:21)
[2021-10-26] MEDS: PERCOCET 5MG/325MG TAB PO PRN ×3 (05:26→16:58)
[2021-10-26] MEDS: ACETAMINOPHEN 500 MG TAB PO SCH ×4 (06:00→17:21)
[2021-10-26] MEDS: ATORVASTATIN 20 MG TAB PO SCH (08:25)
[2021-10-26] MEDS: LIDOCAINE 5% (LIDODERM) PATCH TD SCH (08:25)
[2021-10-26] MEDS: ASPIRIN 81MG ENTERIC TABLET PO SCH (08:26)
[2021-10-26] MEDS: PANTOPRAZOLE 40MG TAB (PROTONIX) PO SCH (08:26)
[2021-10-26] MEDS: GABAPENTIN 400MG CAP PO SCH ×3 (08:26→20:09)
[2021-10-26] MEDS: BACLOFEN 10 MG TAB PO SCH ×2 (08:26→20:10)
[2021-10-26] MEDS: APIXABAN 5 MG TAB (ELIQUIS) PO SCH ×2 (08:26→20:09)
[2021-10-26] MEDS: DRONEDARONE 400 MG TAB (MULTAQ) PO SCH ×2 (08:27→20:10)
[2021-10-26] MEDS ORDERED: LORazepam 0.5 MG TAB PO ONE (09:00)
[2021-10-26] MEDS ORDERED: hydrOXYzine 10 MG TAB PO STA (11:02)
[2021-10-26] MEDS ORDERED: hydrOXYzine 25 MG TAB PO STA (11:36)
[2021-10-26] MEDS: NICOTINE POLACRILEX 2 MG GUM PO PRN ×2 (12:03→20:08)
[2021-10-26] MEDS ORDERED: METOPROLOL 5 MG/5 ML VIAL IV ONE (12:20)
[2021-10-26 12:35] LABS: HEMATOCRIT 45.9 % (42.0-52.0); HEMOGLOBIN 15.7 g/dl (13.5-17.5); MEAN CORPUSCULAR HEMOGLOBIN 33.2 pg (27.0-33.0); MEAN CORPUSCULAR HGB CONC 34.2 g/dl (32.0-36.5); PLATELET COUNT, AUTOMATED 226 10^3/uL (150-450); RED BLOOD COUNT 4.73 10^6/uL (4.30-6.10); WHITE BLOOD COUNT 9.9 10^3/uL (4.0-10.0)
[2021-10-26 13:06] LABS: CALCIUM LEVEL 8.9 MG/DL (8.8-10.2); CREATININE FOR GFR 1.56 MG/DL (0.70-1.30); GLOMERULAR FILTRATION RATE 48.1 (>49); MAGNESIUM LEVEL 2.6 MG/DL (1.8-2.4); PHOSPHORUS LEVEL 3.2 MG/DL (2.5-4.9); POTASSIUM SERUM 5.1 MEQ/L (3.5-5.1)
[2021-10-26] MEDS ORDERED: NS 1,000 ML IV ONE (13:35)
[2021-10-26] MEDS: NS 1,000 ML IV SCH (14:11)
[2021-10-26] MEDS: LATANOPROST 0.005% OPHTH SOLN 2.5 ML OU SCH (20:08)
[2021-10-26] MEDS: TAMSULOSIN 0.4 MG CAP PO SCH (20:09)
[2021-10-26] MEDS: oxyBUTYnin *DITROPAN XL* 5 MG TABCR PO SCH (20:09)
[2021-10-26] MEDS: **NOTE PATIENT COMMENT** MISC XX SCH (20:10)
[2021-10-27] VITALS: BP 127/58
[2021-10-27] MEDS: ACETAMINOPHEN 500 MG TAB PO SCH ×5 (00:42→23:49)
[2021-10-27] MEDS: NS 1,000 ML IV SCH ×2 (03:58→16:21)
[2021-10-27 04:00] VITALS: BP 139/84
[2021-10-27 05:54] LABS: BASO # 0.1 10^3/uL (0.0-0.2); BASO % 1.3 % (0.0-1.0); EOS # 0.5 10^3/uL (0.0-0.5); EOS % 6.2 % (0.0-3.0); HEMATOCRIT 41.9 % (42.0-52.0); HEMOGLOBIN 13.8 g/dl (13.5-17.5); LYMPH # 3.2 10^3/uL (1.5-5.0); LYMPH % 41.7 % (24.0-44.0); MEAN CORPUSCULAR HEMOGLOBIN 32.2 pg (27.0-33.0); MEAN CORPUSCULAR HGB CONC 32.9 g/dl (32.0-36.5); MEAN CORPUSCULAR VOLUME 97.7 fl (80.0-96.0); MONO # 0.6 10^3/uL (0.0-0.8); MONO % 8.1 % (2.0-8.0); NEUTROPHILS # 3.2 10^3/uL (1.5-8.5); NEUTROPHILS % 42.3 % (36.0-66.0); PLATELET COUNT, AUTOMATED 209 10^3/uL (150-450); RED BLOOD COUNT 4.29 10^6/uL (4.30-6.10); WHITE BLOOD COUNT 7.6 10^3/uL (4.0-10.0)
[2021-10-27 06:15] LABS: CALCIUM LEVEL 8.2 MG/DL (8.8-10.2); CREATININE FOR GFR 1.45 MG/DL (0.70-1.30); GLOMERULAR FILTRATION RATE 52.3 (>49); MAGNESIUM LEVEL 2.4 MG/DL (1.8-2.4); PHOSPHORUS LEVEL 3.1 MG/DL (2.5-4.9); POTASSIUM SERUM 4.7 MEQ/L (3.5-5.1)
[2021-10-27] MEDS: DICLOFENAC EPOLAMINE 1.3 % PATCH TOP SCH ×2 (06:27→17:23)
[2021-10-27 08:00] VITALS: BP 124/58
[2021-10-27] MEDS: DRONEDARONE 400 MG TAB (MULTAQ) PO SCH ×2 (08:42→21:25)
[2021-10-27] MEDS: BACLOFEN 10 MG TAB PO SCH ×2 (08:44→21:24)
[2021-10-27] MEDS: ATORVASTATIN 20 MG TAB PO SCH (08:44)
[2021-10-27] MEDS: GABAPENTIN 400MG CAP PO SCH ×3 (08:45→21:23)
[2021-10-27] MEDS: APIXABAN 5 MG TAB (ELIQUIS) PO SCH ×2 (08:45→21:24)
[2021-10-27] MEDS: ASPIRIN 81MG ENTERIC TABLET PO SCH (08:45)
[2021-10-27] MEDS: PANTOPRAZOLE 40MG TAB (PROTONIX) PO SCH (08:45)
[2021-10-27] MEDS: LIDOCAINE 5% (LIDODERM) PATCH TD SCH (08:46)
[2021-10-27] MEDS: PERCOCET 5MG/325MG TAB PO PRN ×3 (08:47→23:50)
[2021-10-27 16:00] VITALS: BP 127/80
[2021-10-27] MEDS: NICOTINE POLACRILEX 2 MG GUM PO PRN (19:39)
[2021-10-27 20:00] VITALS: BP 132/68
[2021-10-27] MEDS: oxyBUTYnin *DITROPAN XL* 5 MG TABCR PO SCH (21:23)
[2021-10-27] MEDS: TAMSULOSIN 0.4 MG CAP PO SCH (21:23)
[2021-10-27] MEDS: LATANOPROST 0.005% OPHTH SOLN 2.5 ML OU SCH (21:25)
[2021-10-28 05:29] LABS: BLOOD UREA NITROGEN 24 MG/DL (7-18); CALCIUM LEVEL 8.3 MG/DL (8.8-10.2); CARBON DIOXIDE LEVEL 23 MEQ/L (21-32); CHLORIDE LEVEL 111 MEQ/L (98-107); CREATININE FOR GFR 1.28 MG/DL (0.70-1.30); GLOMERULAR FILTRATION RATE > 60.0 (>49); GLUCOSE, FASTING 89 MG/DL (70-100); MAGNESIUM LEVEL 2.1 MG/DL (1.8-2.4); PHOSPHORUS LEVEL 3.7 MG/DL (2.5-4.9); POTASSIUM SERUM 4.6 MEQ/L (3.5-5.1); SODIUM LEVEL 138 MEQ/L (136-145)
[2021-10-28 06:00] VITALS: BP 142/64
[2021-10-28] MEDS: PERCOCET 5MG/325MG TAB PO PRN ×4 (06:31→20:04)
[2021-10-28] MEDS: ACETAMINOPHEN 500 MG TAB PO SCH ×3 (06:32→17:20)
[2021-10-28] MEDS: DICLOFENAC EPOLAMINE 1.3 % PATCH TOP SCH ×2 (06:32→17:21)
[2021-10-28] MEDS: NS 1,000 ML IV SCH (06:32)
[2021-10-28 07:52] VITALS: BP 153/70
[2021-10-28] MEDS: APIXABAN 5 MG TAB (ELIQUIS) PO SCH ×2 (08:31→20:02)
[2021-10-28] MEDS: BACLOFEN 10 MG TAB PO SCH ×2 (08:31→20:02)
[2021-10-28] MEDS: ATORVASTATIN 20 MG TAB PO SCH (08:31)
[2021-10-28] MEDS: GABAPENTIN 400MG CAP PO SCH ×3 (08:31→20:01)
[2021-10-28] MEDS: ASPIRIN 81MG ENTERIC TABLET PO SCH (08:31)
[2021-10-28] MEDS: DRONEDARONE 400 MG TAB (MULTAQ) PO SCH ×2 (08:32→20:04)
[2021-10-28] MEDS: PANTOPRAZOLE 40MG TAB (PROTONIX) PO SCH (08:32)
[2021-10-28] MEDS: **NOTE PATIENT COMMENT** MISC XX SCH ×2 (08:38→20:05)
[2021-10-28] MEDS: NICOTINE POLACRILEX 2 MG GUM PO PRN ×2 (08:39→15:01)
[2021-10-28] MEDS: LIDOCAINE 5% (LIDODERM) PATCH TD SCH (08:43)
[2021-10-28 12:16] VITALS: BP 125/59
[2021-10-28 15:55] VITALS: BP 133/60
[2021-10-28 20:00] VITALS: BP 130/61
[2021-10-28] MEDS: TAMSULOSIN 0.4 MG CAP PO SCH (20:03)
[2021-10-28] MEDS: LATANOPROST 0.005% OPHTH SOLN 2.5 ML OU SCH (20:04)
[2021-10-28] MEDS: oxyBUTYnin *DITROPAN XL* 5 MG TABCR PO SCH (20:04)
[2021-10-29] VITALS: BP 128/73
[2021-10-29] MEDS: ACETAMINOPHEN 500 MG TAB PO SCH ×3 (00:30→11:26)
[2021-10-29] MEDS: PERCOCET 5MG/325MG TAB PO PRN ×3 (01:38→11:26)
[2021-10-29 03:49] VITALS: BP 136/67
[2021-10-29 04:00] VITALS: BP 120/71
[2021-10-29] MEDS: DICLOFENAC EPOLAMINE 1.3 % PATCH TOP SCH (06:00)
[2021-10-29 07:06] LABS: CALCIUM LEVEL 8.8 MG/DL (8.8-10.2); CREATININE FOR GFR 1.31 MG/DL (0.70-1.30); GLOMERULAR FILTRATION RATE 58.8 (>49); MAGNESIUM LEVEL 2.3 MG/DL (1.8-2.4); PHOSPHORUS LEVEL 4.1 MG/DL (2.5-4.9); POTASSIUM SERUM 4.3 MEQ/L (3.5-5.1)
[2021-10-29 07:51] VITALS: BP 125/59
[2021-10-29 09:04] VITALS: BP 125/59
[2021-10-29] MEDS: APIXABAN 5 MG TAB (ELIQUIS) PO SCH (09:04)
[2021-10-29] MEDS: ASPIRIN 81MG ENTERIC TABLET PO SCH (09:04)
[2021-10-29] MEDS: GABAPENTIN 400MG CAP PO SCH (09:05)
[2021-10-29] MEDS: DRONEDARONE 400 MG TAB (MULTAQ) PO SCH (09:05)
[2021-10-29] MEDS: BACLOFEN 10 MG TAB PO SCH (09:05)
[2021-10-29] MEDS: ATORVASTATIN 20 MG TAB PO SCH (09:05)
[2021-10-29] MEDS: PANTOPRAZOLE 40MG TAB (PROTONIX) PO SCH (09:06)
[2021-10-29] MEDS: LIDOCAINE 5% (LIDODERM) PATCH TD SCH (09:06)
[2021-10-29] MEDS ORDERED: PERCOCET PO (10:39)
[2021-10-29 12:00] VITALS: BP 153/70
== END 2021-10-29 13:29 | disposition home health service (06) | DRG 347 ==
LOC: M ED 07:14 → EDBD 07:14 → M ED INP 23:06 → ENRESERV 23:34 → M MSPAV 10-22 00:17 → M PCU 10-26 13:11
PROVIDERS: ADMIT Internal Medicine; ATTEND Internal Medicine
DX: M51.26 Other intervertebral disc displacement, lumbar region (principal); I27.20 Pulmonary hypertension, unspecified; I48.91 Unspecified atrial fibrillation; Z85.118 Personal history of other malignant neoplasm of bronchus and lung; Z90.2 Acquired absence of lung [part of]; Z86.73 Personal history of transient ischemic attack (TIA), and cerebral infarction without residual deficits; I25.2 Old myocardial infarction; Z86.711 Personal history of pulmonary embolism; I10 Essential (primary) hypertension; J44.9 Chronic obstructive pulmonary disease, unspecified; E78.5 Hyperlipidemia, unspecified; K21.9 Gastro-esophageal reflux disease without esophagitis; H40.9 Unspecified glaucoma; M19.90 Unspecified osteoarthritis, unspecified site; F32.A Depression, unspecified; F41.9 Anxiety disorder, unspecified; Z98.1 Arthrodesis status; Z87.891 Personal history of nicotine dependence; F10.11 Alcohol abuse, in remission; Z74.09 Other reduced mobility; Z20.822 Contact with and (suspected) exposure to COVID-19; Z79.01 Long term (current) use of anticoagulants; N40.0 Benign prostatic hyperplasia without lower urinary tract symptoms; Z79.82 Long term (current) use of aspirin; Z79.899 Other long term (current) drug therapy; Z88.8 Allergy status to other drugs, medicaments and biological substances; J45.909 Unspecified asthma, uncomplicated; M48.00 Spinal stenosis, site unspecified; I25.10 Atherosclerotic heart disease of native coronary artery without angina pectoris; M51.16 Intervertebral disc disorders with radiculopathy, lumbar region

== ENCOUNTER → 2021-11-05 | Outpatient (REF) | payer OTHER ==
[~2021-11-05] MED LIST changes: +LORA-674 PO; +PERCOCET PO; +XALA0.007 OU
== END ==
LOC: M SFHCPLAZ 10:35
PROVIDERS: ATTEND Family Medicine
DX: R79.89 Other specified abnormal findings of blood chemistry (principal); Z53.8 Procedure and treatment not carried out for other reasons

== ENCOUNTER → 2021-11-05 | Outpatient (CLI) | payer OTHER ==
[2021-11-05 13:24] LABS: ALBUMIN 3.7 GM/DL (3.2-5.2); CALCIUM LEVEL 9.4 MG/DL (8.8-10.2); CREATININE FOR GFR 1.4 MG/DL (0.70-1.30); GLOMERULAR FILTRATION RATE 54.5 (>49); PHOSPHORUS LEVEL 3.5 MG/DL (2.5-4.9); POTASSIUM SERUM 4.6 MEQ/L (3.5-5.1)
== END ==
LOC: M PLALAB 11:02
PROVIDERS: ATTEND Family Medicine
DX: R79.89 Other specified abnormal findings of blood chemistry (principal)

== ENCOUNTER → 2021-12-03 | Outpatient (CLI) | payer OTHER | LOC: M WHC 11:09 | PROVIDERS: ATTEND Physician Assistant | DX: M79.662 Pain in left lower leg (principal) ==

== ENCOUNTER → 2021-12-03 | Outpatient (CLI) | payer OTHER ==
[2021-12-03 14:03] LABS: ALBUMIN 3.7 GM/DL (3.2-5.2); BLOOD UREA NITROGEN 7 MG/DL (7-18); CALCIUM LEVEL 9.8 MG/DL (8.8-10.2); CARBON DIOXIDE LEVEL 31 MEQ/L (21-32); CHLORIDE LEVEL 107 MEQ/L (98-107); CREATININE FOR GFR 1.21 MG/DL (0.70-1.30); GLOMERULAR FILTRATION RATE > 60.0 (>49); GLUCOSE, FASTING 93 MG/DL (70-100); PHOSPHORUS LEVEL 3.5 MG/DL (2.5-4.9); POTASSIUM SERUM 4.1 MEQ/L (3.5-5.1); SODIUM LEVEL 141 MEQ/L (136-145)
== END ==
LOC: M PLALAB 11:29
PROVIDERS: ATTEND Student in an Organized Health Care Education/Training Program
DX: R79.89 Other specified abnormal findings of blood chemistry (principal)

== ENCOUNTER → 2022-01-07 | Outpatient (REF) | payer OTHER | LOC: M SFHCPLAZ 12:56 | PROVIDERS: ATTEND Student in an Organized Health Care Education/Training Program | DX: Z79.891 Long term (current) use of opiate analgesic (principal) ==

== ENCOUNTER → 2022-02-11 | Outpatient (CLI) | payer OTHER ==
[~2022-02-11] MED LIST changes: -LABE100T4 PO; +LABE100T6 PO
== END ==
LOC: M SOG 09:45
PROVIDERS: ATTEND Orthopaedic Surgery
DX: M25.562 Pain in left knee (principal)

== ENCOUNTER → 2022-02-18 | Outpatient (CLI) | payer OTHER | LOC: M PLAIMG 09:04 | PROVIDERS: ATTEND Internal Medicine Pulmonary Disease | DX: Z85.118 Personal history of other malignant neoplasm of bronchus and lung (principal) ==

== ENCOUNTER 2022-03-07 10:00 | Outpatient (RCR) | payer OTHER | END 2022-03-09 | LOC: M PT 10:00 | PROVIDERS: ATTEND Orthopaedic Surgery | DX: M47.27 Other spondylosis with radiculopathy, lumbosacral region (principal) ==

== ENCOUNTER 2022-04-06 14:30 | Outpatient (RCR) | payer OTHER | END 2022-04-08 | LOC: M PT 14:30 | PROVIDERS: ATTEND Orthopaedic Surgery | DX: M47.27 Other spondylosis with radiculopathy, lumbosacral region (principal) ==

== ENCOUNTER → 2022-04-19 | Outpatient (CLI) | payer OTHER ==
[2022-04-19 12:55] LABS: HEMOGLOBIN A1c 5.3 %
[2022-04-19 13:23] LABS: RHEUMATOID FACTOR QUANT < 10.0 IU/ML (<15.0); TOTAL PROTEIN 7.7 GM/DL (6.4-8.2)
[2022-04-19 13:56] LABS: TOTAL 25(OH) VITAMIN D 16.1 NG/ML (30.0-100.0); VITAMIN B12 LEVEL 387 PG/ML (247-911)
[2022-04-20 14:10] LABS: ALBUMIN % 49.8 % (55.8-66.1)
[2022-04-20 14:11] LABS: ALBUMIN 3.83 GM/DL (3.29-5.55); ALPHA-1-GLOBULIN % 5.1 % (2.9-4.9); ALPHA-1-GLOBULINS 0.39 GM/DL (0.17-0.41); ALPHA-2-GLOBULINS 0.99 GM/DL (0.42-0.99); ALPHA-2-GLOBULINS % 12.8 % (7.1-11.8); BETA-1-GLOBULINS % 5.2 % (4.7-7.2); BETA-2-GLOBULINS 0.45 GM/DL (0.19-0.55); BETA-2-GLOBULINS % 5.8 % (3.2-6.5); GAMMA GLOBULIN % 21.3 % (11.1-18.8); GAMMA GLOBULINS 1.64 GM/DL (0.65-1.58)
== END ==
LOC: M LAB 11:13
PROVIDERS: ATTEND Psychiatry & Neurology Neurology
DX: E11.9 Type 2 diabetes mellitus without complications (principal); G62.9 Polyneuropathy, unspecified

== ENCOUNTER 2022-04-27 09:45 | Outpatient (RCR) | payer OTHER | END 2022-05-09 23:59 | disposition home or self-care (01) | LOC: M PT 09:45 | PROVIDERS: ATTEND Orthopaedic Surgery | DX: M47.27 Other spondylosis with radiculopathy, lumbosacral region (principal) ==

== ENCOUNTER 2022-05-30 09:31 | Outpatient (RCR) | payer OTHER | END 2022-06-08 | LOC: M PT 09:31 | PROVIDERS: ATTEND Orthopaedic Surgery | DX: M47.27 Other spondylosis with radiculopathy, lumbosacral region (principal) ==

== ENCOUNTER 2022-09-05 10:00 | Outpatient (RCR) | payer OTHER | END 2022-09-06 | LOC: M PT 10:00 | PROVIDERS: ATTEND Orthopaedic Surgery | DX: M47.27 Other spondylosis with radiculopathy, lumbosacral region (principal) ==

== ENCOUNTER 2022-10-03 06:41 | Outpatient (RCR) | payer OTHER | END 2022-10-07 | LOC: M PT 06:41 | PROVIDERS: ATTEND Orthopaedic Surgery | DX: M47.27 Other spondylosis with radiculopathy, lumbosacral region (principal) ==

== ENCOUNTER 2022-11-02 10:14 | Outpatient (RCR) | payer OTHER ==
[~2022-11-02 10:14] MED LIST changes: -KETO0.02 OU; +KETO5DRO33 OU
== END 2022-11-06 ==
LOC: M PT 10:14
PROVIDERS: ATTEND Orthopaedic Surgery
DX: M47.27 Other spondylosis with radiculopathy, lumbosacral region (principal)

== ENCOUNTER → 2022-11-18 | Outpatient (CLI) | payer OTHER ==
[~2022-11-18] MED LIST changes: -LOSA100T45 PO; +LOSA100T46 PO
[2022-11-18 18:04] LABS: HEMATOCRIT 39.1 % (42.0-52.0); HEMOGLOBIN 12.8 g/dl (13.5-17.5); MEAN CORPUSCULAR HEMOGLOBIN 32.8 pg (27.0-33.0); MEAN CORPUSCULAR HGB CONC 32.7 g/dl (32.0-36.5); MEAN CORPUSCULAR VOLUME 100.3 fl (80.0-96.0); PLATELET COUNT, AUTOMATED 221 10^3/uL (150-450); WHITE BLOOD COUNT 10.6 10^3/uL (4.0-10.0)
[2022-11-18 18:20] LABS: BARBITURATES URINE REFLEX NEGATIVE (NEGATIVE)
[2022-11-18 18:21] LABS: AMPHETAMINES URINE REFLEX NEGATIVE (NEGATIVE); BENZODIAZEPINES URINE REFLEX NEGATIVE (NEGATIVE); COCAINE METABOLITE URINE REFLE NEGATIVE (NEGATIVE); METHADONE URINE REFLEX NEGATIVE (NEGATIVE); PHENCYCLIDINE URINE REFLEX NEGATIVE (NEGATIVE)
[2022-11-18 18:24] LABS: CREATININE, URINE 91.2 MG/DL; MALB URINE SIEMENS < 3.0 MG/L; MAU/CREAT RATIO 3.2 MCG/MG (0.0-30.0)
[2022-11-18 18:26] LABS: ALBUMIN 3.4 G/DL (3.2-5.2); ALKALINE PHOSPHATASE 100 U/L (46-116); ALT/SGPT 18 U/L (7.0-40); AST/SGOT 20 U/L (<34); BILIRUBIN,TOTAL 0.4 MG/DL (0.3-1.2); BLOOD UREA NITROGEN 6 MG/DL (9-23); C REACTIVE PROTEIN QUANTITATIV < 0.40 MG/DL (<1.0); CALCIUM LEVEL 8.4 MG/DL (8.3-10.6); CARBON DIOXIDE LEVEL 27 MMOL/L (20-31); CHLORIDE LEVEL 107 MMOL/L (98-107); CHOLESTEROL LEVEL 92 MG/DL (<200); CHOLESTEROL RISK RATIO 2.83 (<5); CREATININE FOR GFR 1.18 MG/DL (0.70-1.30); GLOMERULAR FILTRATION RATE > 60.0 (>49); GLUCOSE, FASTING 91 MG/DL (74-106); HDL CHOLESTEROL 32.5 MG/DL (>40); LDL CHOLESTEROL 39.9 MG/DL (<100); NON-HDL-C 59.5 MG/DL; POTASSIUM SERUM 3.8 MMOL/L (3.5-5.1); SODIUM LEVEL 137 MMOL/L (136-145); TOTAL PROTEIN 7.1 G/DL (5.7-8.2); TRIGLYCERIDES LEVEL 98 MG/DL (<150)
[2022-11-18 18:28] LABS: FREE T4 0.93 NG/DL (0.89-1.76); THYROID STIMULATING HORMONE 2.126 uIU/ML (0.55-4.78)
[2022-11-18 18:29] LABS: TOTAL 25(OH) VITAMIN D 12.2 NG/ML (20.0-100.0); VITAMIN B12 LEVEL 406 PG/ML (211-911)
[2022-11-18 19:05] LABS: CANNABINOIDS URINE REFLEX PENDING CONFIRMATION (NEGATIVE); OPIATES URINE REFLEX PENDING CONFIRMATION (NEGATIVE)
== END ==
LOC: M PLALAB 15:08
PROVIDERS: ATTEND Student in an Organized Health Care Education/Training Program
DX: Z02.89 Encounter for other administrative examinations (principal); I10 Essential (primary) hypertension
CPT/HCPCS: 36415; 80053; 80061; 80307; 82043; 82306; 82607; 83036; 83525; 84439; 84443; 85027; 86140; G0480

== ENCOUNTER → 2022-12-02 | Outpatient (CLI) | payer OTHER ==
[2022-12-02 13:49] LABS: AMPHETAMINES LEVEL URINE NEGATIVE (NEGATIVE)
[2022-12-02 13:50] LABS: BARBITURATES URINE NEGATIVE (NEGATIVE); BENZODIAZEPINES URINE NEGATIVE (NEGATIVE); COCAINE METABOLITE URINE NEGATIVE (NEGATIVE); METHADONE URINE NEGATIVE (NEGATIVE); OPIATES URINE NEGATIVE (NEGATIVE); PHENCYCLIDINE URINE NEGATIVE (NEGATIVE)
[2022-12-02 13:52] LABS: CANNABINOIDS URINE POSITIVE (NEGATIVE)
== END ==
LOC: M PLALAB 09:55
PROVIDERS: ATTEND Student in an Organized Health Care Education/Training Program
DX: Z79.899 Other long term (current) drug therapy (principal)
CPT/HCPCS: 36415; 80307; 82077; G0480

== ENCOUNTER → 2023-03-09 | Outpatient (CLI) | payer OTHER | LOC: M RAD 09:40 | PROVIDERS: ATTEND Internal Medicine Pulmonary Disease | DX: Z87.891 Personal history of nicotine dependence (principal) ==

== ENCOUNTER 2023-11-30 06:31 | Day surgery (SDC) | payer OTHER ==
[~2023-11-30] VITALS: Ht 175.3 cm; Wt 67.5 kg
[~2023-11-30 06:31] MED LIST changes: +LORA-1041 PO; -LORA-674 PO
[2023-11-30] MEDS: NS 1,000 ML IV ONE (07:17)
[2023-11-30 07:59] VITALS: TEMP 96.7
[2023-11-30] MEDS ORDERED: propofoL 200 MG/20 ML VIAL As Ordered ONE (08:02)
[2023-11-30] MEDS ORDERED: METOPROLOL 5 MG/5 ML VIAL As Ordered ONE (08:02)
[2023-11-30] MEDS ORDERED: LIDOCAINE 2% 100MG/5ML SDV (FOR ANES.) As Ordered ONE (08:02)
[2023-11-30 08:20] VITALS: BP 121/68; O2SAT 99
== END 2023-11-30 08:33 | disposition home or self-care (01) ==
LOC: M OPP 06:31
PROVIDERS: ATTEND Internal Medicine Gastroenterology
DX: Z86.010 Personal history of colon polyps (principal); K63.5 Polyp of colon; K64.8 Other hemorrhoids; K57.30 Diverticulosis of large intestine without perforation or abscess without bleeding; I20.9 Angina pectoris, unspecified; I48.91 Unspecified atrial fibrillation; Z86.73 Personal history of transient ischemic attack (TIA), and cerebral infarction without residual deficits; Z86.74 Personal history of sudden cardiac arrest; Z87.891 Personal history of nicotine dependence; Z79.01 Long term (current) use of anticoagulants; Z79.02 Long term (current) use of antithrombotics/antiplatelets; Z79.51 Long term (current) use of inhaled steroids; Z79.82 Long term (current) use of aspirin; Z79.891 Long term (current) use of opiate analgesic; Z79.899 Other long term (current) drug therapy; Z88.5 Allergy status to narcotic agent

== ENCOUNTER → 2024-03-19 | Outpatient (REF) | payer OTHER ==
[~2024-03-19] MED LIST changes: +GABA-1635 PO; -GABA800T4 PO
== END ==
LOC: M SFHCPLAZ 13:59
PROVIDERS: ATTEND Family Medicine
DX: Z13.1 Encounter for screening for diabetes mellitus (principal); Z13.220 Encounter for screening for lipoid disorders; D64.9 Anemia, unspecified; E55.9 Vitamin D deficiency, unspecified

== ENCOUNTER → 2024-03-20 | Outpatient (CLI) | payer OTHER ==
[2024-03-20 13:29] LABS: TOTAL IRON BINDING CAPACITY 252 UG/DL (250-425)
[2024-03-20 13:30] LABS: ALBUMIN 3.3 G/DL (3.2-5.2); ALKALINE PHOSPHATASE 98 U/L (46-116); ALT/SGPT 15 U/L (7.0-40); AST/SGOT 15 U/L (<34); BILIRUBIN,TOTAL 0.3 MG/DL (0.3-1.2); BLOOD UREA NITROGEN 10 MG/DL (9-23); CARBON DIOXIDE LEVEL 26 MMOL/L (20-31); CHLORIDE LEVEL 108 MMOL/L (98-107); CHOLESTEROL LEVEL 86 MG/DL (<200); CHOLESTEROL RISK RATIO 2.93 (<5); CREATININE FOR GFR 1.15 MG/DL (0.70-1.30); GLOMERULAR FILTRATION RATE > 60.0 (>49); GLUCOSE, FASTING 90 MG/DL (74-106); HDL CHOLESTEROL 29.3 MG/DL (>40); IRON (FE) 31 UG/DL (65-175); LDL CHOLESTEROL 40.7 MG/DL (<100); NON-HDL-C 56.7 MG/DL; PERCENT SATURATION 12.3 % (19.7-50.0); POTASSIUM SERUM 3.9 MMOL/L (3.5-5.1); SODIUM LEVEL 136 MMOL/L (136-145); TOTAL PROTEIN 7.2 G/DL (5.7-8.2); TRIGLYCERIDES LEVEL 80 MG/DL (<150)
[2024-03-20 13:36] LABS: HEMATOCRIT 36.2 % (42.0-52.0); HEMOGLOBIN 12.2 g/dl (13.5-17.5); MEAN CORPUSCULAR HEMOGLOBIN 33.5 pg (27.0-33.0); MEAN CORPUSCULAR HGB CONC 33.7 g/dl (32.0-36.5); MEAN CORPUSCULAR VOLUME 99.5 fl (80.0-96.0); PLATELET COUNT, AUTOMATED 232 10^3/uL (150-450); RED BLOOD COUNT 3.64 10^6/uL (4.30-6.10); WHITE BLOOD COUNT 7.1 10^3/uL (4.0-10.0)
[2024-03-20 13:57] LABS: HEMOGLOBIN A1c 5.1 % (4.0-6.0)
[2024-03-24 15:47] LABS: 25-HYDROXY VITAMIN D2 < 8 pg/mL; 25-HYDROXY VITAMIN D3 24 pg/mL; VITAMIN D 1 25 DIHYDROXY 24 pg/mL (18-72)
== END ==
LOC: M PLALAB 10:11
PROVIDERS: ATTEND Family Medicine
DX: Z13.1 Encounter for screening for diabetes mellitus (principal); Z13.220 Encounter for screening for lipoid disorders; M54.17 Radiculopathy, lumbosacral region; D64.9 Anemia, unspecified; E55.9 Vitamin D deficiency, unspecified; Z79.899 Other long term (current) drug therapy

== ENCOUNTER → 2024-04-23 | Outpatient (REF) | payer OTHER ==
[2024-04-23 11:52] LABS: APPEARANCE, URINE CLEAR (CLEAR); BACTERIA, URINE AUTO NEGATIVE (NEGATIVE); BILIRUBIN, URINE AUTO NEGATIVE (NEGATIVE); BLOOD, URINE BLOOD NEGATIVE (NEGATIVE); COLOR, URINE YELLOW (YELLOW); GLUCOSE, URINE (UA) AUTO NEGATIVE (NEGATIVE); KETONE, URINE AUTO NEGATIVE (NEGATIVE); LEUKOCYTE ESTERASE, URINE AUTO NEGATIVE (NEGATIVE); NITRITE, URINE AUTO NEGATIVE (NEGATIVE); PROTEIN, URINE AUTO NEGATIVE (NEGATIVE); RBC, URINE AUTO 2 /HPF (0-3); SPECIFIC GRAVITY URINE AUTO 1.008 (1.002-1.035); SQUAMOUS EPITHELIAL CELL UR AU 0 /HPF (0-6); UROBILINOGEN, URINE AUTO 0.2 mg/dL (0.0-2.0); WBC, URINE AUTO 0 /HPF (0-3)
== END ==
LOC: M SMT 10:19
PROVIDERS: ATTEND Nurse Practitioner Family
DX: R39.9 Unspecified symptoms and signs involving the genitourinary system (principal)

== ENCOUNTER 2024-05-12 08:19 | Emergency (ER) | payer OTHER ==
[~2024-05-12] VITALS: Ht 177.8 cm; Wt 66.4 kg
[2024-05-12] MEDS ORDERED: OXYC1TAB23 PO (08:35)
[2024-05-12] MEDS ORDERED: LIDO5DIS41 TD (09:15)
[2024-05-12] MEDS: LIDOCAINE 5% (LIDODERM) PATCH TD ONE (09:19)
[2024-05-12 09:29] VITALS: O2SAT 99
[2024-05-12 09:30] VITALS: BP 137/69; TEMP 99.2
[2024-05-13] MEDS ORDERED: NICO-265 BUC (00:46)
[2024-05-13] MEDS ORDERED: BRIM0.2S13 OU (00:46)
[2024-05-13] MEDS ORDERED: VITA100T14 PO (00:46)
== END 2024-05-12 09:35 | disposition home or self-care (01) ==
LOC: M ED 08:19 → EDBD 08:19 → M ED 09:35
DX: S33.5XXA Sprain of ligaments of lumbar spine, initial encounter (principal); W18.30XA Fall on same level, unspecified, initial encounter; Y92.9 Unspecified place or not applicable; Y93.89 Activity, other specified; Y99.9 Unspecified external cause status; I25.10 Atherosclerotic heart disease of native coronary artery without angina pectoris; I25.2 Old myocardial infarction; J44.9 Chronic obstructive pulmonary disease, unspecified; J30.81 Allergic rhinitis due to animal (cat) (dog) hair and dander; F12.10 Cannabis abuse, uncomplicated; Z86.73 Personal history of transient ischemic attack (TIA), and cerebral infarction without residual deficits; Z87.891 Personal history of nicotine dependence; Z85.118 Personal history of other malignant neoplasm of bronchus and lung; Z79.01 Long term (current) use of anticoagulants; Z79.899 Other long term (current) drug therapy; Z88.8 Allergy status to other drugs, medicaments and biological substances

== ENCOUNTER 2024-05-12 18:07 | Inpatient (IN) | payer OTHER ==
[~2024-05-12] VITALS: Ht 177.8 cm; Wt 63.1 kg
[~2024-05-12 18:07] MED LIST changes: +LIDO5DIS41 TD
[2024-05-12] MEDS: PERCOCET 5MG/325MG TAB PO ONE (19:09)
[2024-05-12 20:59] LABS: BASO # 0.1 10^3/uL (0.0-0.2); BASO % 1.4 % (0.0-1.0); EOS # 0.1 10^3/uL (0.0-0.5); EOS % 1.2 % (0.0-3.0); HEMATOCRIT 35.8 % (42.0-52.0); HEMOGLOBIN 12.4 g/dl (13.5-17.5); LYMPH # 2.1 10^3/uL (1.5-5.0); LYMPH % 21.3 % (24.0-44.0); MEAN CORPUSCULAR HEMOGLOBIN 33.6 pg (27.0-33.0); MEAN CORPUSCULAR HGB CONC 34.6 g/dl (32.0-36.5); MONO # 0.5 10^3/uL (0.0-0.8); MONO % 5.4 % (2.0-8.0); NEUTROPHILS # 6.8 10^3/uL (1.5-8.5); NEUTROPHILS % 70.5 % (36.0-66.0); PLATELET COUNT, AUTOMATED 231 10^3/uL (150-450); RED BLOOD COUNT 3.69 10^6/uL (4.30-6.10); WHITE BLOOD COUNT 9.6 10^3/uL (4.0-10.0)
[2024-05-12 21:40] LABS: BLOOD UREA NITROGEN 12 MG/DL (9-23); CALCIUM LEVEL 9.2 MG/DL (8.3-10.6); CARBON DIOXIDE LEVEL 23 MMOL/L (20-31); CHLORIDE LEVEL 104 MMOL/L (98-107); CREATININE FOR GFR 1.14 MG/DL (0.70-1.30); GLOMERULAR FILTRATION RATE > 60.0 (>49); GLUCOSE, FASTING 120 MG/DL (74-106); POTASSIUM SERUM 3.9 MMOL/L (3.5-5.1); SODIUM LEVEL 133 MMOL/L (136-145)
[2024-05-12] MEDS ORDERED: MOM 30ML SUSPENSION UDC PO PRN (23:30)
[2024-05-12] MEDS ORDERED: MED REC IN PROGRESS XX SCH (23:35)
[2024-05-13] MEDS ORDERED: BRIM0.2S13 OU (00:46)
[2024-05-13] MEDS ORDERED: VITA100T14 PO (00:46)
[2024-05-13] MEDS ORDERED: NICO-265 BUC (00:46)
[2024-05-13] MEDS ORDERED: HOME MED LIST COMPLETE! XX SCH (00:50)
[2024-05-13] MEDS: ACETAMINOPHEN 325 MG TAB PO PRN (06:33)
[2024-05-13] MEDS ORDERED: NITROGLYCERIN 0.4MG SUBL TABLET SL PRN (07:25)
[2024-05-13] MEDS ORDERED: PERCOCET 5MG/325MG TAB PO PRN (07:25)
[2024-05-13] MEDS: dilTIAZem 30 MG TAB PO SCH (08:38)
[2024-05-13] MEDS: DOCUSATE SODIUM 100MG CAPSULE PO SCH (08:38)
[2024-05-13] MEDS: PANTOPRAZOLE 40MG TAB (PROTONIX) PO SCH (08:38)
[2024-05-13] MEDS: LORATADINE 10 MG TAB PO SCH (08:38)
[2024-05-13] MEDS: ATORVASTATIN 20 MG TAB PO SCH (08:38)
[2024-05-13] MEDS: GABAPENTIN 400MG CAP PO SCH (08:39)
[2024-05-13] MEDS: PYRIDOXINE 50 MG TAB PO SCH (10:23)
[2024-05-13] MEDS: DRONEDARONE 400 MG TAB (MULTAQ) PO SCH (10:23)
[2024-05-13] MEDS: NS 1,000 ML IV SCH (10:23)
[2024-05-13] MEDS: BRIMONIDINE 0.15% OPHTH SOLN 5 ML OU SCH (10:24)
[2024-05-13] MEDS ORDERED: ISOVUE-370 76% 100ML VIAL As Ordered ONE (14:15)
[2024-05-13 17:25] VITALS: BP 141/67; TEMP 98.5; O2SAT 99
[2024-05-13 20:00] VITALS: BP 159/86; TEMP 97.2; O2SAT 98
[2024-05-13] MEDS: dexAMETHasone 4 MG TAB PO SCH (20:32)
[2024-05-13] MEDS: APIXABAN 5 MG TAB (ELIQUIS) PO SCH (20:32)
[2024-05-13] MEDS: TAMSULOSIN 0.4 MG CAP PO SCH (20:32)
[2024-05-13] MEDS: LATANOPROST 0.005% OPHTH SOLN 2.5 ML OU SCH (20:33)
[2024-05-13 23:59] VITALS: BP_SYST 124; BP_SYST 130; BP_SYST 134; BP_DIAS 58; BP_DIAS 62; BP_DIAS 74
[2024-05-14] VITALS (7 sets, daily range): BP systolic 118–151; BP diastolic 58–98; TEMP 96.9–98.7; O2SAT 97–99
[2024-05-15 00:09] VITALS: BP 134/70; TEMP 97.7; O2SAT 95
[2024-05-15 05:23] LABS: CREATININE FOR GFR 1.32 MG/DL (0.70-1.30); GLOMERULAR FILTRATION RATE 57.9 (>49); POTASSIUM SERUM 4.5 MMOL/L (3.5-5.1)
[2024-05-15 08:02] VITALS: BP 136/62; TEMP 97.6; O2SAT 97
[2024-05-15 12:45] VITALS: BP 130/64; TEMP 97.9; O2SAT 95
[2024-05-15 20:00] VITALS: BP 148/67; TEMP 98.3; O2SAT 98
[2024-05-16] VITALS (9 sets, daily range): BP systolic 113–146; BP diastolic 56–75; TEMP 97.4–99.2; O2SAT 97–99
[2024-05-16] MEDS: ALBUTEROL 90 MCG/ACT 8GM HFA INHALER INH PRN (04:20)
[2024-05-16 05:08] LABS: BLOOD UREA NITROGEN 23 MG/DL (9-23); CALCIUM LEVEL 9.1 MG/DL (8.3-10.6); CARBON DIOXIDE LEVEL 24 MMOL/L (20-31); CHLORIDE LEVEL 107 MMOL/L (98-107); CREATININE FOR GFR 1.11 MG/DL (0.70-1.30); GLOMERULAR FILTRATION RATE > 60.0 (>49); GLUCOSE, FASTING 117 MG/DL (74-106); MAGNESIUM LEVEL 1.7 MG/DL (1.8-2.4); POTASSIUM SERUM 4.5 MMOL/L (3.5-5.1); SODIUM LEVEL 136 MMOL/L (136-145)
[2024-05-16] MEDS: MAG SULF 1GM/100ML (MAG RUN) 1 GM in IV 1 EA IV SCH (07:16)
[2024-05-16] MEDS ORDERED: LIDOCAINE 1% MDV 20ML VIAL As Ordered ONE (10:56)
[2024-05-16 11:14] LABS: INR 0.97; PROTHROMBIN TIME 13.1 SECONDS (12.5-14.5)
[2024-05-17 04:12] VITALS: BP 127/60; TEMP 97.7; O2SAT 98
[2024-05-17 05:09] LABS: BASO % 0.1 % (0.0-1.0); HEMATOCRIT 36.6 % (42.0-52.0); HEMOGLOBIN 12.6 g/dl (13.5-17.5); LYMPH # 1.2 10^3/uL (1.5-5.0); LYMPH % 12.3 % (24.0-44.0); MEAN CORPUSCULAR HEMOGLOBIN 33.6 pg (27.0-33.0); MEAN CORPUSCULAR HGB CONC 34.4 g/dl (32.0-36.5); MEAN CORPUSCULAR VOLUME 97.6 fl (80.0-96.0); MONO # 0.3 10^3/uL (0.0-0.8); MONO % 3.4 % (2.0-8.0); NEUTROPHILS # 8.1 10^3/uL (1.5-8.5); NEUTROPHILS % 83.6 % (36.0-66.0); PLATELET COUNT, AUTOMATED 216 10^3/uL (150-450); RED BLOOD COUNT 3.75 10^6/uL (4.30-6.10); WHITE BLOOD COUNT 9.7 10^3/uL (4.0-10.0)
[2024-05-17 05:26] LABS: BLOOD UREA NITROGEN 22 MG/DL (9-23); CARBON DIOXIDE LEVEL 24 MMOL/L (20-31); CHLORIDE LEVEL 107 MMOL/L (98-107); CREATININE FOR GFR 1.07 MG/DL (0.70-1.30); GLOMERULAR FILTRATION RATE > 60.0 (>49); GLUCOSE, FASTING 123 MG/DL (74-106); POTASSIUM SERUM 4.4 MMOL/L (3.5-5.1); SODIUM LEVEL 136 MMOL/L (136-145)
[2024-05-17 07:35] VITALS: BP 131/61; TEMP 98.4; O2SAT 97
[2024-05-17] MEDS ORDERED: PRED10TA2 PO (11:14)
[2024-05-17 19:35] VITALS: BP 144/67; TEMP 98.2; O2SAT 99
[2024-05-17 20:30] VITALS: BP 130/68; TEMP 98.4; O2SAT 99
[2024-05-18 03:31] VITALS: BP 132/66; TEMP 98.4; O2SAT 99
[2024-05-18 07:56] VITALS: BP 124/62; TEMP 98.7; O2SAT 98
[2024-05-18 09:40] VITALS: BP 140/67
== END 2024-05-18 10:45 | disposition home health service (06) | DRG 54 ==
LOC: EDBD 18:07 → M ED 18:07 → M ED INP 05-13 12:14 → M PCU 05-13 17:18
PROVIDERS: ADMIT Internal Medicine; ATTEND Internal Medicine
PROC: B246ZZZ Ultrasonography of Right and Left Heart (ICD-10-PCS; 2024-05-13)
PROC: 0BBJ3ZX Excision of Left Lower Lung Lobe, Percutaneous Approach, Diagnostic (ICD-10-PCS; principal; 2024-05-16 11:30)
DX: C79.31 Secondary malignant neoplasm of brain (principal); G93.41 Metabolic encephalopathy; G93.6 Cerebral edema; C34.32 Malignant neoplasm of lower lobe, left bronchus or lung; I69.354 Hemiplegia and hemiparesis following cerebral infarction affecting left non-dominant side; R26.89 Other abnormalities of gait and mobility; W19.XXXA Unspecified fall, initial encounter; I25.10 Atherosclerotic heart disease of native coronary artery without angina pectoris; I25.2 Old myocardial infarction; J44.9 Chronic obstructive pulmonary disease, unspecified; H40.9 Unspecified glaucoma; I10 Essential (primary) hypertension; I69.398 Other sequelae of cerebral infarction; G89.29 Other chronic pain; E78.5 Hyperlipidemia, unspecified; F41.9 Anxiety disorder, unspecified; K21.9 Gastro-esophageal reflux disease without esophagitis; N40.0 Benign prostatic hyperplasia without lower urinary tract symptoms; F17.210 Nicotine dependence, cigarettes, uncomplicated; I48.91 Unspecified atrial fibrillation; Z86.711 Personal history of pulmonary embolism; Z90.2 Acquired absence of lung [part of]; Z79.01 Long term (current) use of anticoagulants; Z79.899 Other long term (current) drug therapy; Z88.8 Allergy status to other drugs, medicaments and biological substances; R29.6 Repeated falls; G62.9 Polyneuropathy, unspecified

== ENCOUNTER 2024-05-29 14:22 | Outpatient (RCR) | payer OTHER ==
[~2024-05-29 14:22] MED LIST changes: +NICO-265 BUC; +PRED10TA2 PO; +VITA100T14 PO
[2024-05-29] MEDS ORDERED: CAPM200T PO (17:24)
== END 2024-06-08 ==
LOC: M ONCR 14:22
PROVIDERS: ATTEND General Practice
DX: Z51.0 Encounter for antineoplastic radiation therapy (principal); C79.31 Secondary malignant neoplasm of brain

== ENCOUNTER → 2024-06-26 | Outpatient (CLI) | payer OTHER ==
[~2024-06-26] MED LIST changes: +CAPM200T PO
== END ==
LOC: M RAD 14:17
PROVIDERS: ATTEND Student in an Organized Health Care Education/Training Program
DX: L98.9 Disorder of the skin and subcutaneous tissue, unspecified (principal); R93.89 Abnormal findings on diagnostic imaging of other specified body structures

== ENCOUNTER → 2024-07-15 | Outpatient (REF) | payer OTHER ==
[~2024-07-15] MED LIST changes: +ONDA-84 PO
== END ==
LOC: M SFHCPLAZ 11:54
DX: R22.1 Localized swelling, mass and lump, neck (principal); Z53.9 Procedure and treatment not carried out, unspecified reason

== ENCOUNTER → 2024-07-30 | Outpatient (REF) | payer OTHER ==
[2024-07-30 15:14] LABS: APPEARANCE, URINE HAZY (CLEAR); BACTERIA, URINE AUTO NEGATIVE (NEGATIVE); BILIRUBIN, URINE AUTO NEGATIVE (NEGATIVE); BLOOD, URINE BLOOD NEGATIVE (NEGATIVE); COLOR, URINE AMBER (YELLOW); GLUCOSE, URINE (UA) AUTO NEGATIVE (NEGATIVE); KETONE, URINE AUTO NEGATIVE (NEGATIVE); LEUKOCYTE ESTERASE, URINE AUTO NEGATIVE (NEGATIVE); MUCUS, URINE SMALL (NEGATIVE); NITRITE, URINE AUTO NEGATIVE (NEGATIVE); PROTEIN, URINE AUTO NEGATIVE (NEGATIVE); RBC, URINE AUTO 1 /HPF (0-3); SPECIFIC GRAVITY URINE AUTO 1.023 (1.002-1.035); SQUAMOUS EPITHELIAL CELL UR AU 0 /HPF (0-6); WBC, URINE AUTO 2 /HPF (0-3)
== END ==
LOC: M SFHCPLAZ 09:33
DX: C34.90 Malignant neoplasm of unspecified part of unspecified bronchus or lung (principal)

== ENCOUNTER → 2024-08-15 | Outpatient (CLI) | payer MEDICARE, OTHER | LOC: M RAD 14:11 | PROVIDERS: ATTEND Nurse Practitioner Family | DX: R33.9 Retention of urine, unspecified (principal) ==

== ENCOUNTER → 2024-08-19 | Outpatient (CLI) | payer MEDICARE, MEDICAID ==
[~2024-08-19] MED LIST changes: +PROHANCE 279.3MG/ML 15ML VIAL As Ordered ONE
== END ==
LOC: M RAD 10:22
PROVIDERS: ATTEND General Practice
DX: C79.31 Secondary malignant neoplasm of brain (principal); G93.89 Other specified disorders of brain
CPT/HCPCS: 70553; A9576

== ENCOUNTER → 2024-08-22 | Outpatient (REF) | payer MEDICARE ==
[~2024-08-22] MED LIST changes: -PROHANCE 279.3MG/ML 15ML VIAL As Ordered ONE
== END ==
LOC: M SFHCPLAZ 22:16
PROVIDERS: ATTEND Internal Medicine Hematology
DX: J44.9 Chronic obstructive pulmonary disease, unspecified (principal); G89.29 Other chronic pain; C34.90 Malignant neoplasm of unspecified part of unspecified bronchus or lung; K21.9 Gastro-esophageal reflux disease without esophagitis

== ENCOUNTER → 2024-08-23 | Outpatient (CLI) | payer MEDICARE, MEDICAID ==
[2024-08-23 15:43] LABS: BASO # 0.1 10^3/uL (0.0-0.2); BASO % 1.6 % (0.0-1.0); EOS # 0.2 10^3/uL (0.0-0.5); EOS % 4.8 % (0.0-3.0); HEMATOCRIT 35.7 % (42.0-52.0); HEMOGLOBIN 12.1 g/dl (13.5-17.5); LYMPH # 1.5 10^3/uL (1.5-5.0); LYMPH % 30.9 % (24.0-44.0); MEAN CORPUSCULAR HEMOGLOBIN 35.2 pg (27.0-33.0); MEAN CORPUSCULAR HGB CONC 33.9 g/dl (32.0-36.5); MEAN CORPUSCULAR VOLUME 103.8 fl (80.0-96.0); MONO # 0.4 10^3/uL (0.0-0.8); MONO % 7.4 % (2.0-8.0); NEUTROPHILS # 2.8 10^3/uL (1.5-8.5); NEUTROPHILS % 55.1 % (36.0-66.0); PLATELET COUNT, AUTOMATED 185 10^3/uL (150-450); RED BLOOD COUNT 3.44 10^6/uL (4.30-6.10)
[2024-08-23 15:49] LABS: ERYTHROCYTE SEDIMENTATION RATE 5 mm/hr (0-20)
[2024-08-23 16:12] LABS: URIC ACID 4.3 MG/DL (3.7-9.2)
[2024-08-23 16:15] LABS: ALBUMIN 2.6 G/DL (3.2-5.2); ALKALINE PHOSPHATASE 97 U/L (40-129); ALT/SGPT 13 U/L (7.0-40); AST/SGOT 11 U/L (<34); BILIRUBIN,TOTAL 0.3 MG/DL (0.3-1.2); BLOOD UREA NITROGEN 9 MG/DL (9-23); C REACTIVE PROTEIN QUANTITATIV < 0.50 MG/DL (<1.0); CALCIUM LEVEL 7.8 MG/DL (8.3-10.6); CARBON DIOXIDE LEVEL 27 MMOL/L (20-31); CHLORIDE LEVEL 106 MMOL/L (98-107); GLUCOSE, FASTING 94 MG/DL (74-106); POTASSIUM SERUM 4.2 MMOL/L (3.5-5.1); SODIUM LEVEL 140 MMOL/L (136-145)
[2024-08-23 16:17] LABS: FOLATE 5.4 NG/ML (>5.4)
[2024-08-23 16:18] LABS: TOTAL 25(OH) VITAMIN D 13.9 NG/ML (20.0-100.0); VITAMIN B12 LEVEL 573 PG/ML (211-911)
== END ==
LOC: M LAB 14:56
DX: J44.9 Chronic obstructive pulmonary disease, unspecified (principal); G89.29 Other chronic pain; K21.9 Gastro-esophageal reflux disease without esophagitis; C34.90 Malignant neoplasm of unspecified part of unspecified bronchus or lung; Z79.899 Other long term (current) drug therapy

== ENCOUNTER → 2024-09-04 | Outpatient (CLI) | payer MEDICARE, MEDICAID | LOC: M ONCR 09:54 | PROVIDERS: ATTEND General Practice | DX: C79.31 Secondary malignant neoplasm of brain (principal); C34.12 Malignant neoplasm of upper lobe, left bronchus or lung; F17.218 Nicotine dependence, cigarettes, with other nicotine-induced disorders; Z88.8 Allergy status to other drugs, medicaments and biological substances; J30.81 Allergic rhinitis due to animal (cat) (dog) hair and dander; Z79.891 Long term (current) use of opiate analgesic; Z79.899 Other long term (current) drug therapy; Z79.01 Long term (current) use of anticoagulants ==

== ENCOUNTER → 2024-11-22 | Outpatient (CLI) | payer MEDICARE, MEDICAID ==
[~2024-11-22] MED LIST changes: +ISOVUE-370 76% 100ML VIAL As Ordered ONE; +LIDO1ADH93 TD; -LIDO5DIS41 TD; +PREG25CA3; +TRAZ-252 PO
== END ==
LOC: M RAD 07:07
PROVIDERS: ATTEND Specialist
DX: C34.91 Malignant neoplasm of unspecified part of right bronchus or lung (principal); J44.9 Chronic obstructive pulmonary disease, unspecified
CPT/HCPCS: 71260; Q9967